=== PATIENT | male | born 1960 | race Caucasian/White ===

== ENCOUNTER 2022-02-18 20:10 | Inpatient (IN) | payer OTHER ==
[~2022-02-18] VITALS: Ht 188 cm; Wt 126.6 kg
[2022-02-18 20:17] VITALS: BP 157/62
--- NOTE | 2022-02-18 20:27 | NUR ---
PT TAKEN TO ER BED 08
[2022-02-18] MEDS ORDERED: VANCOMYCIN 1,000 MG in DEXTROSE 5% 250 ML IV ONE (21:20)
[2022-02-18] MEDS ORDERED: HYDROcodone/APAP 5/325 MG 1 TAB TAB PO ONE (21:35)
[2022-02-18] MEDS ORDERED: NACL 0.9% 2,000 ML IV ONE (21:35)
--- NOTE | 2022-02-18 21:50 | NUR ---
20G IV CATH PLACED LEFT AC. LABS OBTAINED AND SENT WITH BLOOD CULTURES.
[2022-02-18] MEDS ORDERED: HYDROcodone/APAP 5/325 MG 1 TAB TAB ONE (21:56)
[2022-02-18 22:22] LABS: HEMATOCRIT 34.6 % (36-52); HEMOGLOBIN 11.5 g/dL (12.0-18.0); MEAN CORPUSCULAR HEMOGLOBIN 29 pg (27-31); MEAN CORPUSCULAR HGB CONC 33 g/dL (33-37); MEAN CORPUSCULAR VOLUME 87.7 fL (80-94); PLATELET COUNT (AUTO) 345 K/uL (140-450); RED BLOOD CELL COUNT(AUTO) 3.95 MIL/uL (4.20-6.10); WHITE BLOOD COUNT (AUTO) 23.8 K/uL (4.8-10.8)
[2022-02-18] MEDS ORDERED: cefTRIAXone 1,000 MG VIAL ONE (22:36)
[2022-02-18] MEDS ORDERED: VANCOMYCIN 1,000 MG VIAL ONE (22:37)
[2022-02-18 22:40] LABS: ALBUMIN 2.1 g/dL (3.4-5.0); ANION GAP 14.5 (8-16); CREATININE 1.7 mg/dL (0.6-1.3); POTASSIUM 3.5 mmol/L (3.5-5.1); TOTAL BILIRUBIN 0.6 mg/dL (0.0-1.0)
[2022-02-18] MEDS ORDERED: guaiFENesin DM 200/20 MG-10 ML 10 ML UDC PO PRN (23:15)
[2022-02-18] MEDS ORDERED: ONDANSETRON 4 MG/2 ML VIAL IM/IVP PRN (23:15)
[2022-02-18] MEDS ORDERED: DOCUSATE SODIUM 100 MG GELCAP PO PRN (23:15)
[2022-02-18] MEDS ORDERED: ACETAMINOPHEN 325 MG TAB PO PRN (23:15)
[2022-02-18] MEDS ORDERED: ZOLPIDEM 5 MG TAB PO PRN (23:15)
[2022-02-18] MEDS: NACL 0.9% 1,000 ML IV SCH (23:15)
[2022-02-18 23:19] LABS: LYMPHOCYTES % (MANUAL) 3 % (20-46); MONOCYTES % (MANUAL) 2 % (5-12)
[2022-02-18] MEDS ORDERED: VANCOMYCIN PER PHARMACY MC PRN (23:20)
--- NOTE | 2022-02-18 23:53 | NUR ---
IV RESTARTED IN RIGHT FOREARM . 20G PLACED BY KITA GALLEGO
[2022-02-19 00:01] LABS: PROTHROMBIN TIME 10.9 secs (10.8-13.4)
[2022-02-19 00:36] LABS: MAGNESIUM 1.7 mg/dL (1.8-2.4)
[2022-02-19 00:37] LABS: AMYLASE 24 U/L (25-115); CHOL/HDL RATIO 4.6 (1-4.5); HDL CHOLESTEROL 11 mg/dL (40-60); LDL (CALC) 18 mg/dL (60-100); TRIGLYCERIDES 111 mg/dL (30-150)
[2022-02-19 00:38] LABS: FREE T4 (FREE THYROXINE) 1.76 ng/dL (0.76-1.46); LIPASE 128 U/L (73-393)
[2022-02-19 00:40] LABS: APPEARANCE,URINE SL CLOUDY (CLEAR); BILIRUBIN,URINE NEGATIVE (NEGATIVE); BLOOD, URINE 1+ (NEGATIVE); COLOR,URINE YELLOW (YELLOW); LEUKOCYTE ESTERASE ,URINE NEGATIVE (NEGATIVE); NITRITE, URINE NEGATIVE (NEGATIVE); UGLUCOSE NEGATIVE (NEGATIVE)
[2022-02-19 00:47] LABS: RBC,URINE 0-5 /HPF (0-5); WBC,URINE 0-5 /HPF (0-5)
[2022-02-19 01:01] LABS: THYROID STIMULATING HORMONE 0.01 uIU/mL (0.34-3.74)
--- NOTE | 2022-02-19 01:08 | NUR ---
LAB AT BEDSIDE , LABS COLLECTED.
--- NOTE | 2022-02-19 01:20 | NUR ---
Patient will be admitted to care of DR HALE. Admited to TELE. Will go to [id number]. Belongings list completed. Report to TELE/MST RN.
[2022-02-19 06:24] LABS: BASOPHILS % (AUTO) 0.1 % (0.0-2.0); EOSINOPHILS # (AUTO) 0.1 K/uL (0-0.4); EOSINOPHILS % (AUTO) 0.4 % (0.0-4.0); HEMATOCRIT 36.4 % (36-52); LYMPHOCYTES # (AUTO) 0.6 K/uL (2.0-11.5); LYMPHOCYTES % (AUTO) 2.9 % (20.5-51.1); MEAN CORPUSCULAR HEMOGLOBIN 29 pg (27-31); MEAN CORPUSCULAR HGB CONC 33 g/dL (33-37); MEAN CORPUSCULAR VOLUME 87.1 fL (80-94); MONOCYTES # (AUTO) 1.5 K/uL (0.8-1.0); MONOCYTES % (AUTO) 7.2 % (1.7-9.3); NEUTROPHILS # (AUTO) 18.9 K/uL (1.8-7.7); NEUTROPHILS % (AUTO) 89.4 % (42.2-75.2); PLATELET COUNT (AUTO) 334 K/uL (140-450); RED BLOOD CELL COUNT(AUTO) 4.18 MIL/uL (4.20-6.10); RED CELL DISTRIBUTION WIDTH 15.1 % (11.6-13.7)
[2022-02-19] MEDS: NACL 0.9% 1,000 ML IV SCH ×3 (06:40→21:30)
[2022-02-19 06:53] LABS: WHITE BLOOD COUNT (AUTO) 21.2 K/uL (4.8-10.8)
[2022-02-19 08:00] VITALS: BP 102/59
[2022-02-19 09:02] LABS: ANION GAP 13.5 (8-16); CARBON DIOXIDE 25.4 mmol/L (21-32); CREATININE 1.5 mg/dL (0.6-1.3)
[2022-02-19 09:05] LABS: POTASSIUM 2.9 mmol/L (3.5-5.1)
[2022-02-19] MEDS: PANTOPRAZOLE 40 MG TABEC PO SCH (10:00)
--- NOTE | 2022-02-19 11:20 | NUR ---
PATIENT HAS BEEN SCREENED AND CATEGORIZED MODERATE NUTRITION RISK. PATIENT WILL BE SEEN WITHIN 3-5 DAYS OF ADMISSION. / ALEXANDER AHUMADA RD
[2022-02-19 12:00] VITALS: BP 106/53
[2022-02-19] MEDS ORDERED: KCL 20 MEQ/WATER INJ PREMIX 200 ML IV PRN (13:35)
[2022-02-19 16:00] VITALS: BP 109/57
--- NOTE | 2022-02-19 16:21 | NUR ---
DC PLANNING: THE PATIENT PRESENTED TO THE ED WITH C/O RIGHT FOOT INFECTION WITH REDNESS, SWELLING AND PURULENT DRAINAGE. H/O DM, COMPLETE TOE AMPUTATIONS OF LEFT FOOT, 2 AND 3RD TOE AMPUTATIONS OF RIGHT FOOT. HE STATES THAT HE HAS THE FOOT WOUND FOR SIX MONTHS BUT IT HAS BEEN DRY AND HE HAS NOT SOUGHT TREATMENT FOR IT. XRAY OF FOOT DOES NOT SUGGEST OSTEOMYELITIS, ORDERS FOR ID AND PODIATRY CONSULTS. WBC'S 23.8, BANDS 10, K+ 2.8. THE PATIENT WAS STARTED ON ROCEPHIN AND VANCO IV AND IVF'S, K+ RIDER ORDERED. DAPHNE WILL FOLLOW. Addendum: 02/23/22 at 1238 by Carmita Adan CM DC PLANNING: DAPHNE SPOKE WITH THE PATIENT AT BEDSIDE REGARDING DC PLANNING. DAPHNE CONFIRMED HIS ADDRESS AND PHONE NUMBER, THE PATIENT LIVES IN A HOUSE WITH SEVERAL FRIENDS WITH DISABILITIES. HE STATES THAT HE SOMETIMES USES A CANE TO AMBULATE BUT IS ABLE TO AMBULATE INDEPENDENTLY LONG DISTANCES. ALSO STATES THERE IS A WC AND FWW IN THE HOME BUT THEY AREN'T HIS. HE HAS BEEN ON SERVICE IN THE PAST FEW MONTHS WITH HOME HEALTH FOR WOUND CARE BUT CAN'T REMEMBER THE NAME OF THE AGENCY. THE PATIENT IS NOT WILLING TO GO TO SNF FOR WOUND CARE, DAPHNE ENDORSED THAT DCP WILL FOCUS ON A HOME DC WITH HOME HEALTH AND DME. DAPHNE LEFT A MESSAGE WITH DR FELIX OFFICE TO CLARIFY WOUND CARE AND ACTIVITY FOR THE PATIENT HE IS S/P I&D YESTERDAY. DAPHNE ALSO SPOKE WITH BRENDA MICHELLE [facility] TO FIND OUT WHICH HOME HEALTH AGENCY THE PATIENT HAS BEEN WITH FOR WOUND CARE, HE HAS NOT HAD HH WITH THEM, CM WILL FAX ORDERS TO [facility]. CM WILL FOLLOW. Addendum: 02/25/22 at 1149 by Carmita Adan DC PLANNING: THE PATIENT IS GOING [place] TODAY WITH DR DAVIDSON FOR FURTHER SURGERY TO HIS RIGHT FOOT. NOTES STATE THAT PATIENT WILL NEED HOME HEALTH FOR WOUND VAC CHANGES AND IV ABX. PATIENTS WBC'S TODAY ARE 17.4, PATIENT WILL HAVE HOME HEALTH THROUGH HIS INSURANCE [facility]. CM WILL ARRANGE ONCE ORDERS ARE IN FOR WOUND VAC, HOME HEALTH AND IV ABX. CM WILL FOLLOW. Addendum: 02/26/22 at 0856 by Carmita Adan CM DC PLANNING: PATIENT IS S/P I&D OF POSTERIOR LATERAL CALF WITH APPLICATION OF WOUND VAC. CM SPOKE WITH DR DAVIDSON TO CLARIFY DC NEEDS, CONFIRMED THAT HIS DOCUMENTATION REGARDING WOUND CARE TO THE LEFT PLANTAR FOOT AND ANKLE ARE TO BE CONTINUED WHEN PATIENT DC'S HOME. DR DAVIDSON STATES THAT THE PATIENT MAY HAVE ANOTHER PUS POCKET THAT NEEDS TO BE CLEANED OUT AND THAT HE WILL MONITOR THE PATIENTS WBC'S TO GAUGE THIS. DC PLAN IS TO RETURN HOME WITH HOME HEALTH, WOUND VAC, IV ABX. CM WILL SPEAK WITH PATIENTS INSURANCE [facility] AND WILL PROCEED WITH STARTING ARRANGEMENTS FOR NEEDS. CM WILL FOLLOW. Addendum: 02/26/22 at 1416 by Carmita Adan CM DC PLANNING: CLINICAL PACKET AND WOUND VAC FORM FAXED TO [facility], MESSAGE LEFT FOR THE [facility] MELISSA RIOS, WOUND CARE NURSE STATES SHE WILL ALSO EMAIL [facility] CONTACT FOR [facility]. CLINICAL PACKET AND ORDERS ALSO FAXED TO [facility] FOR THE WOUND VAC AND HOME HEALTH FOR WOUND CARE AND IV ABX WHICH ARE YET TO BE DETERMINED FOR HOME. CM WILL FOLLOW. Addendum: 02/26/22 at 1606 by Carmita Adan CM DC PLANNING: CM RECEIVED A CALL FROM CHUCK AT [facility] WHO CONFIRMED THAT SHE RECEIVED THE ORDER AND FORM FOR WOUND VAC AND WILL START WORKING ON ARRANGING IT. CM WILL FOLLOW. Addendum: 03/01/22 at 1332 by Mercedes Gayle RN DC PLANNING: CALLED [facility] [phone] SPOKE WITH BRENDA, NOTIFIED HER THAT PATIENT HAS A DC ORDER FOR HOME HEALTH FOR WOUND CARE AND IV ABX. PER BRENDA HER CO WORKER [employer] IS WORKING ON IT AND WILL CALL ME BACK. CM TO FOLLOW Addendum: 03/01/22 at 1425 by Mercedes Gayle RN DC PLANNING: RECEIVED A CALL FROM NADIA AT [facility] [phone] PROVIDE AUTH # [id number] AND STILL AWAITING FOR [facility] TO ACCEPT PT. CM TO FOLLOW. Addendum: 03/01/22 at 1502 by Mercedes Gayle RN DC PLANNING: CALLED [facility] SPOKE WITH MATHEW STATED THEY CAN'T FIND ANY NURSE FOR IV ABX. CALLED NADIA AT [facility] STATED [facility] IS WORKING ON IT, AND WILL CALL BACK WHEN SHE FINDS ONE. CM TO FOLLOW Addendum: 03/01/22 at 1549 by Mercedes Gayle RN DC PLANNING: RECEIVED A CALL FROM BRENDA STATED SONG IS OFF AND [employer] OR [facility] ARE HELPING HER TO PROCESS THE REQUEST. I EXPLAINED TO HER THAT I HAVE A CONFIRMATION FAXED ORDER AT 13:25 AND WAS NOTIFIED [employer] THAT [facility] ARE NOT ACCEPTING BECAUSE OF SHORT STAFF. PER BRENDA WILL ASK [facility] TO PROCESS IT BUT IT MIGHT NOT HAPPEN TODAY. CM TO FOLLOW Addendum: 03/01/22 at 1551 by Mercedes Gayle RN DC PLANNING: KAYLIE DUFF [phone] LEFT A MESSAGE Addendum: 03/02/22 at 1504 by Mercedes Gayle RN DC PLANNING: KAYLIE WILLIS SPOKE WITH BRENDA STATED [facility] WILL ADMINISTERED IV ABX AND [facility] FOR WOUND CARE. CALLED [facility] [phone] AFTER SEVERAL ATTEMPT INTAKE STATED ASHLEY IS ASSIGNED THE CASE AND TRANSFERRED ME TO EXT [phone] ,SHE IS OUT FOR LUNCH . LEFT A MESSAGE. CM TO FOLLOW Addendum: 03/02/22 at 1701 by Mercedes Gayle RN DC PLANNING: I SPOKE WITH PATIENT EXPLAINED THE SHORTAGE OF NURSE AT HOME HEALTH AND IF HE HAS SOMEONE TO BE TEACHABLE TO ADMINISTER THE IV MEDICATION, PATIENT STATED HE HAS RN BROTHER IN LOW NAME THIAGO CAN HELP HIM AND ALSO HE HAS PLENTY OF HELP TO DRIVE HIM TO THE INFUSION CENTER. RECEIVED A CALL FROM [facility] SPOKE WITH ASHLEY, STATED SHE SPOKE WITH PATIENT AND PATIENT IS AGREEING TO PAY THE CO PAY OF 200$ , PLUS TO COME TO THE INFUSION CENTER. PT WILL BE GOING TO THE CENTER 2XWEEK AND AFTER THAT ONCE A WEEK. [facility] WILL BE GOING TO THE [facility] FOR WOUND CARE AND PHYSICAL THERAPY. AWAITNG FOR [facility] TO ACCEPT . CM TO FOLLOW Addendum: 03/02/22 at 1751 by Mercedes Gayle RN DC PLANNING RECEIVED A CALL FROM [facility] SPOKE WITH MATHEW STATED THEY HAVE NO NURSE FOR WOUND VAC , THEY DECLINE THE CASE. CALLED ALBA LEFT A MESSAGE FOR BRENDA AND AFTER HOUR. UNABLE TO DC PATIENT AT THIS TIME CM TO FOLLOW Addendum: 03/03/22 at 0905 by Carmita Adan CM DC PLANNING: CM SPOKE WITH BRENDA AT [facility] ([phone]), ENDORSED THAT [facility] HAS DECLINED THE PATIENT AND ASKED FOR OTHER OPTIONS, BRENDA STATED THAT THERE ARE NO OTHER OPTIONS AND THAT "THIS ONE IS ONE US", [facility] WILL REACH OUT TO HOME HEALTH AGENCIES TO GET AN MCKAYLA. BRENDA STATES THAT AN MCKAYLA WILL TAKE AT LEAST 48 HOURS AND AGAIN STATED "THIS ONE IS ONE US". CM WILL FOLLOW. Addendum: 03/03/22 at 1506 by Mercedes Gayle RN DC PLANNING: CALLED [facility] [phone] LEFT A MESSAGE FOR BRENDA REGARDING THE HOME HEALTH. CM TO FOLLOW Addendum: 03/03/22 at 1658 by Mercedes Gayle RN DC PLANNING: TRIED TO REACH BRENDA AT [facility] LEFT SEVERAL MESSAGE NO CALL FROM BRENDA ,CALLED [facility] AT [phone] STATED [facility] IS ACCEPTING AND TRYING TO REACH US. SHE PROVIDED THE [facility] HEALTH NUMBER. DAPHNE CALLED [phone] SPOKE WITH [facility]WIN UPDATED PT'S CLINICAL AND FAXED THE WOUND VAC SETTING AND ORDER TO [phone]. I ALSO MENTION WOUND VAC NEEDS TO BE CHANGED 2 X A WEEK AND DUE TOMORROW(TUESDAY), PER LESLIE WILL SEND RN TOMORROW TO START THE CARE. CALLED [facility] SPOKE WITH PACO AND NOTIFIED HER THAT PATIENT WILL BE DC HOME TODAY. BRANDON ANTONIO WILL DELIVER THE IV ABX BETWEEN 7PM TO 11PM DAVID, PACO WILL CALL PATIENT AND ARRANGE FOR THE INFUSION TIME. CM SPOKE WITH PATIENT NOTIFIED THE PLAN , PT STATED WILL CALL FAMILY TO PICK HIM UP. INSTRUCTED PRIMARY RN MAGALY TO PROVIDE EXTRA WOUND CARE SUPPLY AND ALL THE WOUND VAC SUPPLY TO BE WITH PATIENT. PATIENT WILL BE DISCHARGED TODAY TO HOME WITH [facility].
[2022-02-19] MEDS: VANCOMYCIN 1,500 MG in NACL 0.9% 500 ML IV SCH (17:50)
--- NOTE | 2022-02-19 19:30 | NUR ---
RECEIVED BEDSIDE REPORT FROM DAY RN. PT IS AAOX4. RESPIRATION ARE EQUAL AND UNLABORED ON ROOM AIR. RT LEG CELLULITIS AND OPEN WOUND DRESSING IS C/D/I. PT WENT NUCLEAR MED FOR BONE SCAN WILL BE GOING BACK AT AROUND 1999 PER REPORT. L FOOT PARTIAL AMPUTATION. FALL RISK IN PLACE. IV ON R FA 24G VANCO INFUSING. PT IS CONTINENT OF B/B. POC REVIEWED WITH PT. CALL LIGHT IS WITHIN REACH.
[2022-02-19 20:00] VITALS: BP 132/65
--- NOTE | 2022-02-19 20:19 | NUR ---
ROCEPHIN NOW INFUSING PER ORDERS. R FOOT PITTING EDEMA +3. DRESSING IS C/D/I. ALL NEEDS MET. WILL CONTINUE TO MONITOR.
[2022-02-19] MEDS: HYDROcodone/APAP 7.5/325 MG 1 TAB PO PRN (21:44)
[2022-02-19 22:04] LABS: BARBITURATE, URINE NEGATIVE ng/ml (NEG <=200); BENZODIAZEPINE, URINE NEGATIVE ng/mL (NEG <=200); CANNABINOID, URINE NEGATIVE ng/mL (NEG <=50); COCAINE, URINE NEGATIVE ng/mL (NEG <=300); OPIATE, URINE POSITIVE ng/mL (NEG <=2000); PHENCYCLIDINE SCREEN,URINE NEGATIVE ng/mL (NEG <=25)
--- NOTE | 2022-02-19 22:10 | NUR ---
ROUNDS MADE. PT OBSERVED LAYING IN BED WITH EYES CLOSED APPEARS TO BE ASLEEP. CHEST RISE AND FALL NOTED. WILL CONTINUE TO MONITOR.
[2022-02-20] VITALS: BP 121/65
--- NOTE | 2022-02-20 00:15 | NUR ---
PATIENT OBSERVED RESTING IN BED APPEARS TO BE ASLEEP. VSS. ALL SAFETY MEASURES ARE IN PLACE. CALL LIGHT IS WITHIN REACH. WILL CONTINUE TO MONITOR.
--- NOTE | 2022-02-20 02:00 | NUR ---
PATIENT OBSERVED LAYING IN BED WITH EYES CLOSED APPEARS TO BE ASLEEP. CHEST RISE AND FALL NOTED. CALL LIGHT IS WITHIN REACH. WILL CONTINUE TO MONITOR.
[2022-02-20 04:00] VITALS: BP 131/73
--- NOTE | 2022-02-20 04:00 | NUR ---
VITAL SIGNS ARE WITHIN NORMAL LIMITS. ALL SAFETY MEASURES ARE IN PLACE. WILL CONTINUE TO MONITOR.
[2022-02-20] MEDS: NACL 0.9% 1,000 ML IV SCH ×3 (04:52→21:21)
[2022-02-20 06:26] LABS: BASOPHILS # (AUTO) 0.1 K/uL (0.00-0.22); BASOPHILS % (AUTO) 0.3 % (0.0-2.0); EOSINOPHILS % (AUTO) 0.1 % (0.0-4.0); HEMATOCRIT 35.7 % (36-52); HEMOGLOBIN 11.5 g/dL (12.0-18.0); LYMPHOCYTES # (AUTO) 0.7 K/uL (2.0-11.5); MEAN CORPUSCULAR HEMOGLOBIN 28 pg (27-31); MEAN CORPUSCULAR HGB CONC 32 g/dL (33-37); MEAN CORPUSCULAR VOLUME 88.1 fL (80-94); MONOCYTES # (AUTO) 1.8 K/uL (0.8-1.0); MONOCYTES % (AUTO) 7.6 % (1.7-9.3); NEUTROPHILS # (AUTO) 20.9 K/uL (1.8-7.7); PLATELET COUNT (AUTO) 427 K/uL (140-450); RED BLOOD CELL COUNT(AUTO) 4.05 MIL/uL (4.20-6.10); RED CELL DISTRIBUTION WIDTH 15.2 % (11.6-13.7); WHITE BLOOD COUNT (AUTO) 23.5 K/uL (4.8-10.8)
[2022-02-20 06:34] LABS: ANION GAP 12.1 (8-16); CARBON DIOXIDE 28.3 mmol/L (21-32); CREATININE 1.3 mg/dL (0.6-1.3); POTASSIUM 3.4 mmol/L (3.5-5.1)
--- NOTE | 2022-02-20 06:52 | NUR ---
PATIENT WAS INITIALLY SCREENED MODERATE I/A AND THEN PATIENT WAS NOTED TO HAVE A WOUND/PRESSURE ULCER PER CONSULT RECEIVED AFTER INITIAL SCREEN WAS DONE. RESCREEN ADDENDUM: PATIENT HAS BEEN RESCREENED AND RE-CATEGORIZED HIGH RISK D/T PATIENT WITH WOUND/PRESSURE ULCER. PATIENT WILL BE SEEN WITHIN 1-2 DAYS OF CHANGE IN MEDICAL STATUS. 02/20/22-02/21/22 ERIC ULLOA MS, RDN
--- NOTE | 2022-02-20 07:29 | NUR ---
GAVE BEDSIDE REPORT TO DAY RN. PT ENDORSED IN STABLE CONDITION.
[2022-02-20 08:00] VITALS: BP 123/60
--- NOTE | 2022-02-20 08:00 | NUR ---
RECEIVED REPORT FROM [employer] [employer]. PT A/O X4. NO SOB OR RESPIRATORY DISTRESS. ON RA. NO SOB OR RESPIRATORY DISTRESS. ON RA. DENIES PAIN. URINAL AT BEDSIDE. IVF INFUSING. nS @ 135 ML/HR. BONE SCAN COMPLETED. PT RADIOACTIVE TILL 02/19/22 @ 1600. SAFETY MEASURES IN PLACE. WILL CONTINUE TO MONITOR.
[2022-02-20 08:08] LABS: T4 (THYROXINE) 9.6 ug/dL (4.5-12.0)
--- NOTE | 2022-02-20 09:00 | NUR ---
PT AFEBRILE. DENIES FEVER. STATES RLE PAIN. SEE EMAR FOR PRN PAIN MED ADMINISTRATION.
[2022-02-20] MEDS: PANTOPRAZOLE 40 MG TABEC PO SCH (09:11)
[2022-02-20] MEDS: HYDROcodone/APAP 7.5/325 MG 1 TAB PO PRN (09:17)
--- NOTE | 2022-02-20 09:57 | NUR ---
(02/20/22) RD INITIAL ASSESSMENT COMPLETED PLEASE REFER TO NUTRITION ASSESSMENT UNDER CARE ACTIVITY FOR ESTIMATED NUTRITIONAL NEEDS. RD RECOMMENDATIONS: 1. CONTINUE CCHO 60 GM DIET TOLERATED. 2. IF PTS INTAKES > 50%, CONSIDER INCREASING DIET TO CCHO 75 GM. 3. PER RX PROTOCOL, RDN ADDED GLUCERNA 1 CARTON WITH EACH MEAL TID TO HELP MEET EST NEEDS AND SUPPORT WOUND HEALING NEEDS. THIS PROVIDES A TOTAL OF 660 KCAL AND 30 GM PROTEIN. 4. RECOMMEND ADDING THERAGRAN-M AND VITAMIN C FOR WOUND HEALING SUPPORT 5. RDN TO F/U WITH DM DIET EDUCATION 6. RD WILL F/U 2-3 DAYS; HIGH RISK. ERIC ULLOA, MS, RDN
--- NOTE | 2022-02-20 11:38 | NUR ---
CONTACTED MD REGARDING ACCUCHECK/INSULIN ORDERS. AWAITING REPLY.
[2022-02-20] MEDS ORDERED: DEXTROSE 50% 50 ML SYR IVP PRN (11:55)
[2022-02-20 12:00] VITALS: BP 127/65
--- NOTE | 2022-02-20 12:00 | NUR ---
NEW ACCUCHECK ORDERS INPUTTED PER MD ORDER.
[2022-02-20] MEDS: PIPERACILLIN/TAZOBACTAM 3.375 GM in DEXTROSE 5% 50 ML IV SCH ×2 (12:16→21:20)
[2022-02-20] MEDS: POTASSIUM CHLORIDE 10 MEQ TABER PO PRN (12:18)
--- NOTE | 2022-02-20 12:18 | NUR ---
KDUR 40 MEQ PO PRN GIVEN.
[2022-02-20] MEDS: VANCOMYCIN 1,500 MG in NACL 0.9% 500 ML IV SCH (13:12)
[2022-02-20 16:00] VITALS: BP 132/57
[2022-02-20] MEDS: INSULIN LISPRO SLIDING SCALE 100 UNITS/ML VIAL SUBQ PRN (16:16)
[2022-02-20] MEDS: BLOOD GLUCOSE MONITORING 1 DEV DEV FS SCH ×2 (16:19→21:22)
--- NOTE | 2022-02-20 17:00 | NUR ---
NO ADVERSE EFFECTS FROM ANTIBIOTICS. AFEBRILE. PAIN AT THIS TIME. SAFETY MEASURES IN PLACE. PT NO LONGER RADIOACTIVE FROM BONE SCAN. NEEDS ALL MET. WILL MONITOR.
--- NOTE | 2022-02-20 19:27 | NUR ---
RECEIVED PT FROM AM NURSE FOR CONTINUITY OF CARE.PT IS STABLE
--- NOTE | 2022-02-20 19:30 | NUR ---
REPORT GIVEN TO NIGHTSHIFT NURSE FOR CONTINUITY OF CARE.
--- NOTE | 2022-02-20 23:35 | NUR ---
PATIENT ASLEEP, BREATHING EVEN AND UNLABORED,NO DISTRESS NOTED
[2022-02-21] VITALS: BP 134/63
--- NOTE | 2022-02-21 01:00 | NUR ---
IV ACCESS PULLED OPUT,CHABGED FROM RFA TO RAC, INTACT AND PATENT.
--- NOTE | 2022-02-21 02:15 | NUR ---
TEMP 100.4,TYLENOL 650 MG TAB GIVEN,NO DISTRESS NOTED.
[2022-02-21] MEDS: NACL 0.9% 1,000 ML IV SCH ×3 (03:10→18:42)
[2022-02-21 04:00] VITALS: BP 126/70
--- NOTE | 2022-02-21 04:00 | NUR ---
PT ASLEEP ,BREATHING EVEN AND UNLABORED,NO DISTRESS NOTED
[2022-02-21] MEDS: PIPERACILLIN/TAZOBACTAM 3.375 GM in DEXTROSE 5% 50 ML IV SCH ×3 (05:05→20:57)
--- NOTE | 2022-02-21 06:08 | NUR ---
SLEEPING COMFORTABLY,NO ADVERSE REACTION NOTED FROM ANTIBIOTICS.
[2022-02-21 06:18] LABS: HEMATOCRIT 34.4 % (36-52); HEMOGLOBIN 11.2 g/dL (12.0-18.0); MEAN CORPUSCULAR HEMOGLOBIN 28 pg (27-31); MEAN CORPUSCULAR HGB CONC 33 g/dL (33-37); MEAN CORPUSCULAR VOLUME 86.3 fL (80-94); PLATELET COUNT (AUTO) 423 K/uL (140-450); RED BLOOD CELL COUNT(AUTO) 3.99 MIL/uL (4.20-6.10); RED CELL DISTRIBUTION WIDTH 14.9 % (11.6-13.7); WHITE BLOOD COUNT (AUTO) 23.8 K/uL (4.8-10.8)
[2022-02-21 06:46] LABS: ANION GAP 10.4 (8-16); CARBON DIOXIDE 25.7 mmol/L (21-32); CREATININE 1.1 mg/dL (0.6-1.3); POTASSIUM 3.1 mmol/L (3.5-5.1)
[2022-02-21 06:48] LABS: LYMPHOCYTES % (MANUAL) 7 % (20-46); MONOCYTES % (MANUAL) 9 % (5-12)
[2022-02-21] MEDS: VANCOMYCIN 1,500 MG in NACL 0.9% 500 ML IV SCH (07:06)
[2022-02-21] MEDS: BLOOD GLUCOSE MONITORING 1 DEV DEV FS SCH ×4 (07:06→21:10)
--- NOTE | 2022-02-21 07:25 | NUR ---
RECEIVED REPORT FROM CAB STARTER NURSE FOR CONTINUITY OF CARE. PT ASLEEP IN BED, BREATHING SYMMETRICAL ON ROOM AIR. RAC 22G WITH NS AT 135CC/HR. FLACC O. BED ON LOW POSITION. CALL LIGHT WITHIN REACH. ALL SAFETY MEASURES IN PLACE.
--- NOTE | 2022-02-21 07:35 | NUR ---
ENDORSED PT TO AM NURSE FOR CON TINUITY OF CARE.PT IS STABLE
[2022-02-21 08:00] VITALS: BP 135/62
[2022-02-21] MEDS: PANTOPRAZOLE 40 MG TABEC PO SCH (08:21)
[2022-02-21] MEDS: POTASSIUM CHLORIDE 10 MEQ TABER PO PRN (08:21)
--- NOTE | 2022-02-21 08:25 | NUR ---
SCHEDULED AM MEDICATION GIVEN ORDERED, K REPLENISHED WITH PRN K DUR. PT WITH 1 SIDE RAIL UP, REFUSES TO PUT 2 SIDERAILS UP DESPITE EXPLAINING SAFETY IMPORTANCE.
--- NOTE | 2022-02-21 09:10 | NUR ---
SEEN BY DR ENAMORADO STATED TO CONTINUE BEBA
[2022-02-21] MEDS ORDERED: MAG SULF 2000 MG/WATER PREMIX 50 ML IV SCH (10:00)
--- NOTE | 2022-02-21 10:00 | NUR ---
PT WITH M&M CHOCOLATES UNOPENED BAG, PT HAS DM. EXPLAINED TO PT IMPORTANCE OF COMPLYING WITH DIET AND EFFECTS OF NON COMPLIANCE WITH WOUND HEALING. PT VERBALIZED UNDERSTANDING
--- NOTE | 2022-02-21 11:45 | NUR ---
CHANGED DRESSING ON RIGHT FOOT, NOTED WOUND WITH FOUL ODOR, C/O MILD PAIN BUT TOLERABLE.
[2022-02-21] MEDS: INSULIN LISPRO SLIDING SCALE 100 UNITS/ML VIAL SUBQ PRN ×3 (11:49→21:13)
[2022-02-21] MEDS ORDERED: METF-1253 PO (12:03)
[2022-02-21] MEDS ORDERED: FLUO40CA6 PO (12:03)
[2022-02-21] MEDS ORDERED: ATOR20TA PO (12:03)
[2022-02-21] MEDS ORDERED: GLIP10TA3 PO (12:03)
[2022-02-21] MEDS ORDERED: HYDR-4004 PO (12:03)
[2022-02-21] MEDS ORDERED: BENA20TA PO (12:03)
--- NOTE | 2022-02-21 13:06 | NUR ---
PT STATED HE'S TAKING MEDS AT HOME (BENAZEPRIL, HYDROCHLOROTHIAZIDE, METFORMIN, GLIPIZIDE, ATORVASTATIN AND PROZAC) DR SHANE MADE AWARE, TO CONTINUE BP MEDS. PT ALREADY ON INSULIN AND FINGERSTICKS.
--- NOTE | 2022-02-21 13:35 | NUR ---
PT SEEN BY DR DAVIDSON (PRN PHYSICAL THERAPIST) REGARDING RIGHT FOOT WOUND, PT FOR SURGERY TOMORROW MORNING PER .
[2022-02-21 16:00] VITALS: BP 138/76
--- NOTE | 2022-02-21 17:01 | NUR ---
PT AWAKE IN BED, ABLE TO MAKE NEEDS KNOWN. BREATHING SYMMETRICAL ON ROOM AIR. PT STATES PO DIABETIC MEDS AT HOME, WORKS WELL IN CONTROLLING HIS BLOOD SUGAR. DR SHANE MADE AWARE TO RESUME GLIPIZIDE AND CONTINUE ACCUCHECK AND INSULIN PER SLIDING SCALE. DENIES PAIN AT THIS TIME.
--- NOTE | 2022-02-21 19:31 | NUR ---
ENDORSED PT TO MIS SPECIALIST NURSE. PT IN STABLE CONDITION
--- NOTE | 2022-02-21 19:32 | NUR ---
RECEIVED REPORT FROM AM NURSE. REVIEWED PLAN OF CARE FOR CONTINUITY OF CARE. PT STABLE ABLE TO MAKE NEEDS KNOWN. R FOOT WOUND DRESSING D&I. RAC 22G IV INFUSING NS @135CC/HR. DENIES PAIN. ALL SAFETY MEASURES IN PLACE. WILL CONTINUE TO MONITOR.
[2022-02-21 20:00] VITALS: BP 150/69
--- NOTE | 2022-02-21 21:30 | NUR ---
HS MEDS GIVEN. EDUCATED PT RE: LORIO P MIDNIGHT STATUS FOR SURGERY 02/22/2022 @ 0730 AM. TV=[id number] COVERED WITH 4 UNITS HUMALOG INSULIN PER SLIDING SCALE. WILL CONTINUE TO OBSERVE.
[2022-02-22] MEDS: VANCOMYCIN 1,500 MG in NACL 0.9% 500 ML IV SCH (00:09)
--- NOTE | 2022-02-22 01:00 | NUR ---
PT SLEPT IN 2HR INTERVALS. VOIDING PER URINAL CLEAR LIGHT BRAVO URINE. CALL LIGHT WITHIN REACH. NO C/O PAIN OR DISTRESS. WILL CONTINUE WITH FREQ ROUNDS.
[2022-02-22] MEDS: NACL 0.9% 1,000 ML IV SCH ×6 (01:30→23:40)
[2022-02-22] MEDS: PIPERACILLIN/TAZOBACTAM 3.375 GM in DEXTROSE 5% 50 ML IV SCH ×3 (04:58→21:00)
[2022-02-22 05:16] LABS: BASOPHILS % (AUTO) 0.1 % (0.0-2.0); EOSINOPHILS % (AUTO) 0.1 % (0.0-4.0); HEMATOCRIT 32.2 % (36-52); HEMOGLOBIN 10.7 g/dL (12.0-18.0); LYMPHOCYTES % (AUTO) 4.2 % (20.5-51.1); MEAN CORPUSCULAR HEMOGLOBIN 29 pg (27-31); MEAN CORPUSCULAR HGB CONC 33 g/dL (33-37); MEAN CORPUSCULAR VOLUME 87.3 fL (80-94); MONOCYTES # (AUTO) 1.7 K/uL (0.8-1.0); MONOCYTES % (AUTO) 7.5 % (1.7-9.3); NEUTROPHILS # (AUTO) 19.8 K/uL (1.8-7.7); NEUTROPHILS % (AUTO) 88.1 % (42.2-75.2); PLATELET COUNT (AUTO) 419 K/uL (140-450); RED BLOOD CELL COUNT(AUTO) 3.68 MIL/uL (4.20-6.10); WHITE BLOOD COUNT (AUTO) 22.6 K/uL (4.8-10.8)
[2022-02-22 05:53] LABS: ANION GAP 10.5 (8-16); CARBON DIOXIDE 26.8 mmol/L (21-32); CREATININE 1.2 mg/dL (0.6-1.3); POTASSIUM 3.3 mmol/L (3.5-5.1)
--- NOTE | 2022-02-22 06:30 | NUR ---
PT HAS BEEN NPO X MEDS SINCE MIDNIGHT. SCHEDULED FOR SURGERY ON R FOOT I&D @ 07;30 AM. SURGERY CHECKLIST DONE ON COMPUTER. MK=437 COVERED WITH 2 UNITS HUMALOG INSULIN PER SLIDING SCALE. GLUCOTROL HELD. PT IS NPO. SIDE RAILS UP X2. CALL LIGHT WITHIN REACH. NAD. WILL CONTINUE TO MONITOR.
[2022-02-22] MEDS: BLOOD GLUCOSE MONITORING 1 DEV DEV FS SCH ×4 (06:37→21:00)
[2022-02-22] MEDS: glipiZIDE 10 MG TAB PO SCH ×2 (06:38→17:21)
[2022-02-22] MEDS: INSULIN LISPRO SLIDING SCALE 100 UNITS/ML VIAL SUBQ PRN ×4 (06:39→22:55)
[2022-02-22] MEDS ORDERED: fentaNYL citrate 0.05 MG/ML VIAL ONE (07:25)
[2022-02-22] MEDS ORDERED: PROPOFOL 200 MG/20 ML VIAL IV ONE (07:26)
--- NOTE | 2022-02-22 07:34 | NUR ---
PT LEFT FOR SURGERY IN BED.
--- NOTE | 2022-02-22 07:36 | NUR ---
PATIENT WHEELED BY OR NURSE ON [facility] FOR SURGERY AT 0730 PATIENT AWAKE AND RECEIVED ENDORSEMENT FROM [place] LINE ATTENDANT NURSE FOR CONTINUITY OF CARE.
[2022-02-22] MEDS ORDERED: BUPIVACAINE-MPF 0.5% 10 ML VIAL INJ ONE (07:42)
[2022-02-22] MEDS ORDERED: SEVOFLURANE 250 ML BTL INH ONE (07:50)
[2022-02-22 08:00] VITALS: BP 150/69
--- NOTE | 2022-02-22 08:00 | NUR ---
ENDORSED REPORT TO AM NURSE. REVIEWED PLAN OF CARE AND DISCUSSED NIGHT'S EVENTS FOR CONTINUITY OF CARE.
[2022-02-22] MEDS ORDERED: ePHEDrine 50 MG/ML VIAL ONE (08:28)
--- NOTE | 2022-02-22 08:50 | NUR ---
PATIENT SEEN BY DR. HALE AND SPOKE TO PATIENT PATIENT PROMISE THAT HE WILL CONTINUE TO TAKE HIS MEDICATION EVEN WHEN HE IS DISCHARGE TO [facility]. PATIENT CALM AND COOPERATIVE. Addendum: 02/22/22 at 1037 by Kirsetn Cid [id number] PATIENT.
[2022-02-22] MEDS: BENAZEPRIL 20 MG TAB PO SCH (09:00)
[2022-02-22] MEDS: PANTOPRAZOLE 40 MG TABEC PO SCH (09:00)
[2022-02-22] MEDS: hydroCHLOROthiazide 25 MG TAB PO SCH (09:00)
[2022-02-22] MEDS ORDERED: MEPERIDINE 25 MG/ML SYR IVP PRN (09:45)
[2022-02-22] MEDS ORDERED: ONDANSETRON 4 MG/2 ML VIAL IVP PRN (09:45)
[2022-02-22] MEDS ORDERED: diphenhydrAMINE 50 MG/ML VIAL IVP PRN (09:45)
[2022-02-22] MEDS ORDERED: HYDROmorphone 1 MG/ML AMP IVP PRN (09:45)
[2022-02-22] MEDS ORDERED: BLOOD GLUCOSE MONITORING 1 DEV DEV FS SCH (09:45)
--- NOTE | 2022-02-22 10:10 | NUR ---
WOUND CARE CONSULT NOT DONE . PT IS WITH DR. DAVIDSON FOR PROCEDURES RIGHT SIDE I & D OF FOOT & ANKLE WITH FASCIOTOMY AND CONTROL OF INFECTED TISSUE, AMPUTATION OF METATARSAL, BONE BIOPSY, AND PARTIAL CLOSURE. PLEASE FOLLOW UP WITH DR. DAVIDSON, POST SURGERY ORDER AND WOUND CARE.
--- NOTE | 2022-02-22 10:15 | NUR ---
PT IDS BACK FROM SURGERY. OR NURSE WHEELED THE PT RUBI. PT BREATHING EVEN AND UNLABORED. NO SIGNS OF DISTRESS NOTED. V/S TAKEN. PT IS ON STABLE CONDITION. LEFT MESSAGE TO DR HALE REGARDING MG LEVEL 1.6. NEEDS PRN ORDER FOR MG COVERAGE. AWAITING FOR RESPONSE. CALL LIGHT WITHIN REACH. SAFETY PRECAUTIONS IN PLACE. WILL CONTINUE TO MONITOR.
[2022-02-22] MEDS: POTASSIUM CHLORIDE 10 MEQ TABER PO PRN (12:17)
[2022-02-22] MEDS: MAGNESIUM OXIDE 400 MG TAB PO SCH (12:17)
[2022-02-22] MEDS: HYDROcodone/APAP 7.5/325 MG 1 TAB PO PRN ×2 (12:33→23:04)
--- NOTE | 2022-02-22 12:33 | NUR ---
ADMINISTERED MAG OX AND K-DUR. BLOOD SUGAR CHECK DONE. ADMINISTERED INSULIN COVERAGE FOR BS 197. PT ALSO COMPLAINED OF PAIN 6/10. MEDICATED PER PRN ORDER. WILL CONTINUE TO MONITOR.
--- NOTE | 2022-02-22 13:30 | NUR ---
PATIENT ATE LUNCH CALL LIGHT WITH IN EASY REACH.
--- NOTE | 2022-02-22 15:00 | NUR ---
PATIENT ON BED RESTING WITH CALL LIGHT WITH IN EASY REACH. REQUESTED FOR DIET SODA GIVEN REQUEST. NO COMPLAIN OF PAIN AT THIS TIME.
[2022-02-22 16:00] VITALS: BP 127/83
--- NOTE | 2022-02-22 17:00 | NUR ---
BLOOD SUGAR CHECKED GIVEN INSULIN COVERAGE AND GLIPIZIDE GIVEN. CALL LIGHT WITH IN EASY REACH.
--- NOTE | 2022-02-22 19:25 | NUR ---
GAVE REPORT TO PLATE PAINTER APPRENTICE NURSE FOR CONTINUITY OF CARE.
--- NOTE | 2022-02-22 19:26 | NUR ---
RECEIVED BEDSIDE REPORT FROM DAY SHIFT NURSE FOR THE CONTINUITY OF CARE FOR PT.
--- NOTE | 2022-02-22 20:30 | NUR ---
PT ON BED, AWAKE AND ALERT. IV HYDRATION IS RUNNING WELL. IV HYDRATION IS ON GOING, INTACT AND PATENT. SAFETY MEASURES IN PLACE, CALL LIGHT WITHIN REACH.
[2022-02-23] VITALS: BP 115/64
[2022-02-23] MEDS: NACL 0.9% 1,000 ML IV SCH ×4 (02:25→21:55)
[2022-02-23] MEDS: HYDROcodone/APAP 7.5/325 MG 1 TAB PO PRN ×3 (05:31→21:43)
[2022-02-23] MEDS: PIPERACILLIN/TAZOBACTAM 3.375 GM in DEXTROSE 5% 50 ML IV SCH ×3 (05:40→21:43)
[2022-02-23 05:44] LABS: BASOPHILS % (AUTO) 0.1 % (0.0-2.0); EOSINOPHILS % (AUTO) 0.1 % (0.0-4.0); HEMATOCRIT 30.3 % (36-52); HEMOGLOBIN 9.9 g/dL (12.0-18.0); LYMPHOCYTES # (AUTO) 1.4 K/uL (2.0-11.5); LYMPHOCYTES % (AUTO) 5.4 % (20.5-51.1); MEAN CORPUSCULAR HEMOGLOBIN 29 pg (27-31); MEAN CORPUSCULAR HGB CONC 33 g/dL (33-37); MEAN CORPUSCULAR VOLUME 87.2 fL (80-94); MONOCYTES # (AUTO) 1.7 K/uL (0.8-1.0); MONOCYTES % (AUTO) 6.7 % (1.7-9.3); NEUTROPHILS # (AUTO) 22.7 K/uL (1.8-7.7); NEUTROPHILS % (AUTO) 87.7 % (42.2-75.2); PLATELET COUNT (AUTO) 432 K/uL (140-450); RED BLOOD CELL COUNT(AUTO) 3.48 MIL/uL (4.20-6.10); RED CELL DISTRIBUTION WIDTH 15.5 % (11.6-13.7)
[2022-02-23 05:48] LABS: WHITE BLOOD COUNT (AUTO) 25.8 K/uL (4.8-10.8)
[2022-02-23] MEDS: INSULIN LISPRO SLIDING SCALE 100 UNITS/ML VIAL SUBQ PRN ×5 (06:39→21:23)
--- NOTE | 2022-02-23 07:20 | NUR ---
RECEIVED REPORT FROM PRINTED CIRCUIT BOARD PANELS DEVELOPER NURSE FOR CONTINUITY OF CARE. PATIENT ALERT AND NO DISTRESS NOTED. IV SITE ON LEFT AC FINN 22 IV RUNNING AT 135ML/MIN. NO FLUID OVERLOAD NOTED. NO ADVERSE REACTION NOTED. ALL SAFETY MEASURE IN PLACE. CALL LIGHT WITH IN EASY REACH.
[2022-02-23] MEDS: BLOOD GLUCOSE MONITORING 1 DEV DEV FS SCH ×5 (07:30→20:59)
[2022-02-23 08:00] VITALS: BP 107/57
[2022-02-23 08:13] LABS: ANION GAP 15.9 (8-16); CARBON DIOXIDE 23.6 mmol/L (21-32); CREATININE 1.2 mg/dL (0.6-1.3); POTASSIUM 3.5 mmol/L (3.5-5.1)
[2022-02-23] MEDS: glipiZIDE 10 MG TAB PO SCH ×2 (09:37→17:27)
[2022-02-23] MEDS: PANTOPRAZOLE 40 MG TABEC PO SCH (09:37)
[2022-02-23] MEDS: hydroCHLOROthiazide 25 MG TAB PO SCH (09:38)
[2022-02-23] MEDS: BENAZEPRIL 20 MG TAB PO SCH (09:38)
[2022-02-23] MEDS: MAGNESIUM OXIDE 400 MG TAB PO SCH (09:38)
--- NOTE | 2022-02-23 09:47 | NUR ---
GIVEN ALL DUE MEDICATION. PATIENT ASLEEP BUT ABLE TO WAKE UP. CALL LIGHT WITH IN EASY REACH.
--- NOTE | 2022-02-23 10:14 | NUR ---
PT IN BED, AWAKE AND WATCHING FROM HIS CP. BREATHING EVEN AND UNLABORED AT ROOM AIR. NO DISTRESS NOTED. DENIES PAIN. WILL CONTINUE TO MONITOR.
--- NOTE | 2022-02-23 12:11 | NUR ---
BLOOD GLUCOSE CHECK DONE. INSULIN COVERAGE FOR BS-277 GIVEN.
--- NOTE | 2022-02-23 13:02 | NUR ---
NURSE WITH CRUMB PACKER AT BED SIDE, ASSESSING HOW PT IS TOLERATING HIS DIET AND GIVING PT TEACHINGS. PT VERBALIZED UNDERSTANDING.
--- NOTE | 2022-02-23 13:07 | NUR ---
LASHONDA HANG ZOSYN ORDER NO ADVERSE REACTION NOTED.
--- NOTE | 2022-02-23 13:51 | NUR ---
PT COMPLAINT ON HER FOOT OF PAIN 04/16. MEDICATED PER PRN ORDER.
--- NOTE | 2022-02-23 14:53 | NUR ---
02/23/22 RD FOLLOW UP COMPLETED PLEASE REFER TO NUTRITION ASSESSMENT UNDER CARE ACTIVITY FOR ESTIMATED NUTRITIONAL NEEDS. 1. DISCONTINUE GLUCERNA TID PER RD PROTOCOL 2. RECOMMEND MECHANICAL SOFT CCHO 60 GM + RENAL DIET AND BONIFACIO TID (FOR WOUND HEALING) TOLERATED 3. RD PROVIDED NUTRITIONAL DIABETES EDUCATION TO PT WITH HANDOUTS 4. RD TO FOLLOW-UP 7 DAYS, LOW RISK REVIEWED BY ALEXANDER AHUMADA RD
--- NOTE | 2022-02-23 15:37 | NUR ---
SPOKE TO FNS FOR THE RECOMMENDATION TO CHANGE DIET TO [facility] 60GMS RENAL MECHANICAL SOFT. INFORMED AND APPROVED BY DR. HALE.
[2022-02-23 16:00] VITALS: BP 118/65
--- NOTE | 2022-02-23 16:18 | NUR ---
DC PLANNING PATIENT IS A 61 YR OLD MALE WHO PRESENTED TO THE [facility]/ED ON 02/20/22 FOR WORSENING RIGHT FOOT INFECTION. SW MET WITH PATIENT AT BEDSIDE FOR THE PURPOSE OF DISCUSSING AND GATHERING COLLATERAL INFORMATION. PATIENT REPORTS LIVING FAMILY FRIENDS AT THE ADDRESS LISTED. PATIENT REPORTS EMERGENCY CONTACT AND MEDICAL DECISION MAKER SAFIA GONZALEZ ([phone]). SW INQUIRED ON A.D, PATIENT DENIED CURRENTLY HAVING A.D IN PLACE. SW PROVIDED PATIENT WITH INFORMATION AND EDUCATION ON A.D. CLIENT WAS RECEPTIVE AND ACCEPTED PACKET OFFERED BY SW. PATIENT REPORTS BEING CONSISTENT WITH MEET WITH PCP AND REPORTS LAST VISIT ONE MONTH AGO. PATIENT REPORTED THAT SEVERAL REFERRALS HAD BEEN MADE BY PCP AND PATIENT WILL BE FOLLOWING UP WITH REFERRALS ONCE CLEARED FOR DISCHARGE. PATIENT REPORTS NO BARRIERS IN ACCESSING MEDICATIONS AND REPORTS BEING MEDICATION COMPLIANT. PATIENT REPORTS RECEIVING MEDICATIONS FROM [facility] [place] WHEN NEEDED. PATIENT REPORTS THAT HIS PLAN IS TO DISCHARGE HOME AND THAT FAMILY FRIENDS WOULD BE PROVIDING TRANSPORTATION AND AIDING IN HIS CARE IF NEEDED. PATIENT REPORTS BEING AMBULATORY WITH ASSISTANCE; WALKER OR CANE. SW INQUIRED ON ANY ADDITIONAL RESOURCES NEEDED; PATIENT DECLINED. SW WILL FOLLOW UP NEEDED.
--- NOTE | 2022-02-23 17:00 | NUR ---
BLOOD SUGAR CHECKED GIVEN INSULIN COVERAGE ALSO GIVEN ORAL MEDICATION TOLERATED WELL. NO ADVERSE REACTION NOTED ON ANTIBIOTIC THERAPY.
--- NOTE | 2022-02-23 19:43 | NUR ---
ENDORSED PT TO STUD DAIRY CATTLE FARMER NURSE FOR CONTINUITY OF CARE. ALL NEEDS MET THROUGHOUT SHIFT. PT IS STABLE.
[2022-02-23 20:00] VITALS: BP 129/69
[2022-02-24] MEDS: PIPERACILLIN/TAZOBACTAM 3.375 GM in DEXTROSE 5% 50 ML IV SCH ×3 (05:12→22:34)
[2022-02-24 05:56] LABS: ANION GAP 10.1 (8-16); BASOPHILS % (AUTO) 0.1 % (0.0-2.0); CARBON DIOXIDE 28.1 mmol/L (21-32); CREATININE 1.1 mg/dL (0.6-1.3); EOSINOPHILS # (AUTO) 0.1 K/uL (0-0.4); EOSINOPHILS % (AUTO) 0.5 % (0.0-4.0); HEMATOCRIT 30.6 % (36-52); LYMPHOCYTES # (AUTO) 1.1 K/uL (2.0-11.5); LYMPHOCYTES % (AUTO) 5.2 % (20.5-51.1); MEAN CORPUSCULAR HEMOGLOBIN 29 pg (27-31); MEAN CORPUSCULAR HGB CONC 33 g/dL (33-37); MEAN CORPUSCULAR VOLUME 87.5 fL (80-94); MONOCYTES # (AUTO) 1.4 K/uL (0.8-1.0); MONOCYTES % (AUTO) 6.4 % (1.7-9.3); NEUTROPHILS # (AUTO) 19.1 K/uL (1.8-7.7); NEUTROPHILS % (AUTO) 87.8 % (42.2-75.2); PLATELET COUNT (AUTO) 442 K/uL (140-450); POTASSIUM 3.2 mmol/L (3.5-5.1); RED CELL DISTRIBUTION WIDTH 15.6 % (11.6-13.7); WHITE BLOOD COUNT (AUTO) 21.7 K/uL (4.8-10.8)
[2022-02-24] MEDS: NACL 0.9% 1,000 ML IV SCH ×3 (06:29→22:33)
[2022-02-24] MEDS: BLOOD GLUCOSE MONITORING 1 DEV DEV FS SCH ×4 (06:30→21:00)
[2022-02-24] MEDS: INSULIN LISPRO SLIDING SCALE 100 UNITS/ML VIAL SUBQ PRN ×2 (06:41→11:59)
[2022-02-24 08:00] VITALS: BP 130/65
[2022-02-24] MEDS: hydroCHLOROthiazide 25 MG TAB PO SCH (09:19)
[2022-02-24] MEDS: BENAZEPRIL 20 MG TAB PO SCH (09:20)
[2022-02-24] MEDS: MAGNESIUM OXIDE 400 MG TAB PO SCH (09:20)
[2022-02-24] MEDS: PANTOPRAZOLE 40 MG TABEC PO SCH (09:20)
[2022-02-24] MEDS: glipiZIDE 10 MG TAB PO SCH ×2 (09:24→16:30)
[2022-02-24 16:00] VITALS: BP 137/80
--- NOTE | 2022-02-24 18:56 | NUR ---
COVID SPECIMEN COLLECTED AND SENT TO LAB.
--- NOTE | 2022-02-24 19:45 | NUR ---
RECEIVD PT FROM AM NURSE FOR CONTINUITY OF CARE.PT IS STABLE
--- NOTE | 2022-02-24 20:00 | NUR ---
ASSISTED DR ROB TO ASSESS AND CHANGE WOUND DRESSING ON THE PT. SCHEDULED FOR RT SIDE DEBRIDEMENTOF ALL NECROTIC TISSUE,BONE,APPLICATION OF WOUND VAC. PT WILL BE NPO POST MIDNIGHT.
--- NOTE | 2022-02-24 22:11 | NUR ---
PHONE CALL TO DR STUART HERMAN ONE TIME ORDER,NO DOSE NOTED.LEFT MESSAGE TO CALL RN BACK.AWAITING REPLY
[2022-02-24] MEDS: POTASSIUM CHLORIDE 10 MEQ TABER PO PRN (22:36)
--- NOTE | 2022-02-24 22:48 | NUR ---
PHONE CALL AGAIN TO DR DAVIDSON REGARDING LEVAQUIN, STILL AWAITING REPLY FROM PHYSICIAN
--- NOTE | 2022-02-24 23:35 | NUR ---
LEVAQUIN 500 MG IVP ADMINISTERED IVP PER DR ORDER. NO ADVERSE REACTIONS NOTED
[2022-02-24] MEDS ORDERED: LEVOFLOXACIN 500 MG/D5W PREMIX 100 ML IV SCH (23:45)
[2022-02-25] VITALS: BP 129/70
--- NOTE | 2022-02-25 02:00 | NUR ---
PT ASLEEP,RESPIRATIONS EVEN AND UNLABORED,NO DISTRESS NOTED
[2022-02-25] MEDS: NACL 0.9% 1,000 ML IV SCH ×5 (03:35→21:11)
[2022-02-25 04:00] VITALS: BP 132/55
--- NOTE | 2022-02-25 04:00 | NUR ---
PATIENTS IV CAME OFF, INSERTED NEW IV ON LEFT WRIST,INTACT AND PATENT,
[2022-02-25] MEDS: PIPERACILLIN/TAZOBACTAM 3.375 GM in DEXTROSE 5% 50 ML IV SCH ×3 (05:10→20:10)
[2022-02-25 05:24] LABS: BASOPHILS % (AUTO) 0.1 % (0.0-2.0); EOSINOPHILS # (AUTO) 0.1 K/uL (0-0.4); EOSINOPHILS % (AUTO) 0.4 % (0.0-4.0); HEMATOCRIT 33.3 % (36-52); LYMPHOCYTES % (AUTO) 5.6 % (20.5-51.1); MEAN CORPUSCULAR HEMOGLOBIN 29 pg (27-31); MEAN CORPUSCULAR HGB CONC 33 g/dL (33-37); MEAN CORPUSCULAR VOLUME 86.8 fL (80-94); MONOCYTES # (AUTO) 1.2 K/uL (0.8-1.0); MONOCYTES % (AUTO) 6.8 % (1.7-9.3); NEUTROPHILS # (AUTO) 15.5 K/uL (1.8-7.7); NEUTROPHILS % (AUTO) 87.1 % (42.2-75.2); PLATELET COUNT (AUTO) 473 K/uL (140-450); RED BLOOD CELL COUNT(AUTO) 3.84 MIL/uL (4.20-6.10); RED CELL DISTRIBUTION WIDTH 15.5 % (11.6-13.7); WHITE BLOOD COUNT (AUTO) 17.8 K/uL (4.8-10.8)
[2022-02-25 05:55] LABS: CARBON DIOXIDE 28.6 mmol/L (21-32); CREATININE 1.1 mg/dL (0.6-1.3); POTASSIUM 3.6 mmol/L (3.5-5.1)
--- NOTE | 2022-02-25 06:00 | NUR ---
PATIENT IS AWAKE, NO COMPLAIN OF PAIN,RESPIRATIONS EVEN AND UNLABORED,NO DISTRESS NOTED
[2022-02-25] MEDS: INSULIN LISPRO SLIDING SCALE 100 UNITS/ML VIAL SUBQ PRN ×3 (06:37→20:14)
[2022-02-25] MEDS: BLOOD GLUCOSE MONITORING 1 DEV DEV FS SCH ×4 (06:49→20:09)
--- NOTE | 2022-02-25 07:15 | NUR ---
RECEIVED PT WAKE LYING ON THE BED WITH SIDE RAILS UP AND CALL LIGHT WITHIN REACH, IV LINE NOTED ON THE LFA G. 22 WITH NS INFUSING AT 135ML/HR, INTACT, PT HAS A DRESSING IN PLACE ON THE RIGHT FOOT, NO SIGN OF DISTRESS NOTED AND WILL CONTINUE TO MONITOR PT.
[2022-02-25 08:00] VITALS: BP 148/79
[2022-02-25] MEDS: hydroCHLOROthiazide 25 MG TAB PO SCH (08:25)
[2022-02-25] MEDS: MAGNESIUM OXIDE 400 MG TAB PO SCH (08:25)
[2022-02-25] MEDS: PANTOPRAZOLE 40 MG TABEC PO SCH (08:25)
[2022-02-25] MEDS: BENAZEPRIL 20 MG TAB PO SCH (08:26)
[2022-02-25] MEDS: glipiZIDE 10 MG TAB PO SCH ×2 (08:26→16:15)
--- NOTE | 2022-02-25 08:26 | NUR ---
PT IS NPO EXCEPT MEDS FOR SCHEDULED SURGERY TODAY AT 1300, PT WAS GIVEN THE SCHEDULED AM MEDICATIONS NOW, 148/79, PULSE IS 72, BLOOD GLUCOSE IS 179.
[2022-02-25] MEDS ORDERED: ceFAZolin 1,000 MG VIAL ONE (11:32)
[2022-02-25] MEDS ORDERED: HYDROGEN PEROXIDE 3% 240 ML BTL TP ONE (11:33)
[2022-02-25] MEDS ORDERED: fentaNYL citrate 0.05 MG/ML VIAL ONE (11:40)
[2022-02-25] MEDS ORDERED: SEVOFLURANE 250 ML BTL INH ONE (11:42)
[2022-02-25] MEDS ORDERED: BUPIVACAINE-MPF 0.5% 30 ML VIAL INJ ONE (12:03)
[2022-02-25] MEDS ORDERED: SUCCINYLCHOLINE CHLORIDE 200 MG/10 ML VIAL IVP ONE (12:22)
[2022-02-25] MEDS ORDERED: PROPOFOL 200 MG/20 ML VIAL IV ONE (12:22)
[2022-02-25] MEDS ORDERED: ONDANSETRON 4 MG/2 ML VIAL ONE (12:42)
[2022-02-25] MEDS ORDERED: METOCLOPRAMIDE 10 MG/2 ML INJ VIAL IVP PRN ×2 (13:10→13:15)
[2022-02-25] MEDS ORDERED: BLOOD GLUCOSE MONITORING 1 DEV DEV FS ONE (13:10)
[2022-02-25] MEDS ORDERED: NACL 0.9% 1,000 ML IV SCH (13:10)
[2022-02-25] MEDS ORDERED: HYDROmorphone 1 MG/ML AMP IVP PRN (13:15)
--- NOTE | 2022-02-25 13:45 | NUR ---
PT IS BACK TO THE ROOM NOW FROM A DEBRIDEMENT OF THE RIGHT FOOT WITH WOUND VAC PLACED.
[2022-02-25] MEDS ORDERED: BLOOD GLUCOSE MONITORING 1 DEV DEV FS SCH (14:00)
[2022-02-25] MEDS ORDERED: DEXAMETHASONE 4 MG/ML VIAL ONE (15:39)
[2022-02-25 16:00] VITALS: BP 158/106
[2022-02-25] MEDS: HYDROcodone/APAP 7.5/325 MG 1 TAB PO PRN ×2 (16:15→21:07)
--- NOTE | 2022-02-25 19:22 | NUR ---
ENDORSED PT TO NIGHT RN, PT IS AWAKE, EATING AND IS STABLE AT THIS TIME.
--- NOTE | 2022-02-25 20:00 | NUR ---
RECEIVED REPORT FROM AM NURSE. DISCUSSED POC FOR CONTINUITY OF CARE. PT AWAKE, ALERT SITTING UP IN BED WORKING ON COMPUTER. VSS. NAD. REMINDED PT OF FLUID RESTRICTION OF 1000CC. R FOOT DRESSING WITH WOUND VAC D&I. WOUND VAC OUTPUT FOR DAYSHIFT 50CC SANGUINOUS DRAINAGE. R CALF STILL SWOLLEN. L FOOT ALL TOES AMPUTATED. DID NOT LIKE DINNER. FRIEND BROUGHT PT A HAMBURGER INSTEAD. ALL SAFETY MEASURES IN PLACE. CALL LIGHT WITH IN REACH.
--- NOTE | 2022-02-25 21:00 | NUR ---
HS MEDS GIVEN. VSS. NQ=565 COVERED WITH 4 UNITS HUMALOG INSULIN PER SLIDING SCALE. PT C/O R FOOT PAIN 05/16. RECEIVED 1 TAB NORCO . ZOSYN IVPG INFUSED. ALL SAFETY MEASURES IN PLACE. CONTINUE TO MONITOR.
--- NOTE | 2022-02-25 22:00 | NUR ---
PAIN REASSESSMENT NORCO EFFECTIVE. PT SLEEPING RR EVEN AND UNLABORED WITH EQUAL CHEST RISE. NAD. CONTINUE WITH FREQ ROUNDS.
[2022-02-26] VITALS: BP 124/61
--- NOTE | 2022-02-26 03:30 | NUR ---
FREQ ROUNDS. CHECKED PT STABLE AND ASLEEP. RR EVEN AND UNLABORED WITH EQUAL CHEST RISE. ALL SAFETY MEASURES IN PLACE. CALL LIGHT WITHIN REACH. WILL CONTINUE TO MONITOR.
[2022-02-26] MEDS: PIPERACILLIN/TAZOBACTAM 3.375 GM in DEXTROSE 5% 50 ML IV SCH ×3 (04:23→20:34)
[2022-02-26 05:10] LABS: BASOPHILS % (AUTO) 0.1 % (0.0-2.0); EOSINOPHILS # (AUTO) 0.1 K/uL (0-0.4); EOSINOPHILS % (AUTO) 0.3 % (0.0-4.0); HEMATOCRIT 30.8 % (36-52); HEMOGLOBIN 10.1 g/dL (12.0-18.0); LYMPHOCYTES # (AUTO) 1.1 K/uL (2.0-11.5); LYMPHOCYTES % (AUTO) 5.4 % (20.5-51.1); MEAN CORPUSCULAR HEMOGLOBIN 29 pg (27-31); MEAN CORPUSCULAR HGB CONC 33 g/dL (33-37); MEAN CORPUSCULAR VOLUME 87.5 fL (80-94); MONOCYTES # (AUTO) 1.2 K/uL (0.8-1.0); MONOCYTES % (AUTO) 6.1 % (1.7-9.3); NEUTROPHILS # (AUTO) 17.8 K/uL (1.8-7.7); NEUTROPHILS % (AUTO) 88.1 % (42.2-75.2); PLATELET COUNT (AUTO) 461 K/uL (140-450); RED BLOOD CELL COUNT(AUTO) 3.52 MIL/uL (4.20-6.10); RED CELL DISTRIBUTION WIDTH 15.7 % (11.6-13.7); WHITE BLOOD COUNT (AUTO) 20.3 K/uL (4.8-10.8)
[2022-02-26] MEDS: HYDROcodone/APAP 7.5/325 MG 1 TAB PO PRN ×3 (05:29→23:56)
[2022-02-26] MEDS: NACL 0.9% 1,000 ML IV SCH (05:30)
[2022-02-26 05:38] LABS: CARBON DIOXIDE 30.5 mmol/L (21-32); CREATININE 1.2 mg/dL (0.6-1.3); POTASSIUM 3.5 mmol/L (3.5-5.1)
--- NOTE | 2022-02-26 05:45 | NUR ---
LUZ CORMIER. NOTICED R FOOT WOUND DRESSING SATURATED THROUGH THE KERLIX AND PINA WRAP. CHANGED THE DRESSING ACCORDING TO DR DAVIDSON'S ORDERS. DID THE DAY SHIFT DRESSING CHANGE DUE TO SOILING. CLEANSED THE R FOOT PLANTER SURFACE AND MEDIAL ANKLE WITH NORMAL SALINE. PACKED WOUND WITH BETADINE SOAKED GAUZE. COVERED WITH ABD PADS THEN WRAPPED WITH KERLIX AND COVERED WITH AN PINA WRAP. BED BATH AND COMPLETE LINEN CHANGE DONE. WOUND VAC INSERTION SITE DRESSING INTACT AND NOT TOUCHED PER ORDER. R CALF REMAINS SWOLLEN, RED AND HOT TO TOUCH. MEDICATED WITH NORCO7.5/325 1 TAB FOR DISCOMFORT AFTER DRESSING CHANGE. . WOUND VAC HAD 50CC OUTPUT THIS SHIFT. PT IS DIABETIC. BS= 244 COVERED WITH 4UNITS HUMALOG INSULIN PER SLIDING SCALE. ALSO RECEIVED SCHEDULED GLUCOTROL 10 MG PO. PT REMAINS A&OX4. PLAYING GAME ON CELL PHONE. ALL SAFETY MEASURES IN PLACE . CALL LIGHT WITHIN REACH. WILL CONTINUE TO MONITOR.
[2022-02-26] MEDS: BLOOD GLUCOSE MONITORING 1 DEV DEV FS SCH ×4 (06:20→20:36)
[2022-02-26] MEDS: INSULIN LISPRO SLIDING SCALE 100 UNITS/ML VIAL SUBQ PRN ×2 (06:27→12:05)
[2022-02-26] MEDS: glipiZIDE 10 MG TAB PO SCH ×2 (06:30→17:21)
--- NOTE | 2022-02-26 07:15 | NUR ---
RECEIVED REPORT FROM TIME STUDY OBSERVER NURSE. PT AWAKE AND STABLE. ON RA, WITH BREATHING UNLABORED. A&OX4. WOUND VAC FUNCTIONING. FLUIDS ARE RUNNING 120ML/HR, ON LEFT FA, 22G, INFUSING WELL. TIME STUDY OBSERVER NURSE COMPLETED DRESSING CHANGE AT 0545, FOR DAILY DRESSING CHANGE, WILL CHANGE IF SOILED. WILL CONTINUE TO MONITOR.
--- NOTE | 2022-02-26 07:28 | NUR ---
ENDORSED REPORT TO DAY SHIFT RN ELIN AND LEAH GARNER.FOR CONTINUITY OF CARE. PT IS STABLE.
[2022-02-26 08:00] VITALS: BP 125/70
[2022-02-26] MEDS: BENAZEPRIL 20 MG TAB PO SCH (09:47)
[2022-02-26] MEDS: hydroCHLOROthiazide 25 MG TAB PO SCH (09:47)
[2022-02-26] MEDS: PANTOPRAZOLE 40 MG TABEC PO SCH (09:48)
[2022-02-26] MEDS: MAGNESIUM OXIDE 400 MG TAB PO SCH (09:49)
--- NOTE | 2022-02-26 10:45 | NUR ---
DIETARY AT BEDSIDE. PT TOLERATING DIET, EATING 80-90% OF MEAL. NO S/S OF DISTRESS. CALL LIGHT IN REACH. ALL SAFETY MEASURES IN PLACE
--- NOTE | 2022-02-26 12:29 | NUR ---
SPOKE TO MD AND PHARMACY, MD RENEWED MEDICATION. SPOKE TO PT TO CLARIFY ALLERGY FOR NORCO, PT REPORTED NAUSEA THE ONLY SYMPTOM. PT STILL WANTS TO CONTINUE TAKING NORCO.
--- NOTE | 2022-02-26 12:50 | NUR ---
02/26/22 RD FOLLOW UP COMPLETED PLEASE REFER TO NUTRITION ASSESSMENT UNDER CARE ACTIVITY FOR ESTIMATED NUTRITIONAL NEEDS. 1. CONTINUE WITH MECHANICAL SOFT/CCHO 45 GM/RENAL DIET TOLERATED -RECOMMEND BONIFACIO BID PER RD PROTOCOL 2. DISCUSSED PLAN OF CARE WITH RN 3. RD TO FOLLOW-UP 3-5 DAYS, MODERATE RISK REVIEWED BY ALEXANDER AHUMADA RD
[2022-02-26 16:00] VITALS: BP 127/61
--- NOTE | 2022-02-26 16:00 | NUR ---
PT LYING ON HIS BED, AWAKE. NOT IN DISTRESS AT THIS TIME. WILL CONTINUE TO MONITOR.
--- NOTE | 2022-02-26 18:49 | NUR ---
SPOKE TO DR DAVIDSON. RECEIVED ORDER FOR PICC LINE, CONSENT SIGNED. NOTIFIED NURSE OF WOUNDVAC CHANGE TO START TOMORROW 02/[address] DAVIDSON.
--- NOTE | 2022-02-26 19:25 | NUR ---
GAVE REPORT TO WEED BURNER NURSE, PT IS STABLE. DISCUSSED PLAN OF CARE.
--- NOTE | 2022-02-26 19:30 | NUR ---
RECEIVED .REPORT FROM ELIN Ramirez RN FOR CONTINUITY OF CARE. PT IS STABLE IN BED WATCHING TV. A&OX4. DENIES PAIN. ON ROOM AIR WITH NOS/S OF ACUTE DISTRESS. RR EVEN AND UNLABORED WITH EQUAL CHEST RISE. IV SITE LFA 22G INTACT AND PATENT. R FOOT AND R CALF WOUND DRESSING D&I WITH WOUND VAC IN PLACE DRAINING SEROSANGUINOUS DRAINAGE. VOIDING PER URINAL. ALL SAFETY MEASURES IN PLACE. CALL LIGHT WITHIN REACH. ENCOURAGED TO CALL FOR ANY ASSISTANCE. WILL CONTINUE TO MONITOR.
[2022-02-26] MEDS ORDERED: LEVOFLOXACIN 500 MG/D5W PREMIX 100 ML IV ONE (20:00)
--- NOTE | 2022-02-26 21:00 | NUR ---
HS MEDS GIVEN. LZ=832 NO INSULIN COVERAGE NEEDED. EDUCATED PT RE: DIET, CONSUMPTION OF SODAS AND WOUND HEALING. VSS. ALL QUESTIONS ANSWERED. ALL SAFETY MEASURES IN PLACE. WILL CONTINUE WITH FREQ ROUNDS.
--- NOTE | 2022-02-26 21:30 | NUR ---
1ST DOSE OF LEVAQUIN IVPB INFUSED. NO REACTION NOTED. PT SLEEPING. VOIDING PER URINAL. R FOOT DRESSING INTACT. R CALF STILL SWOLLEN, WARM TO TOUCH. NO ACUTE DISTRESS NOTED. ALL SAFETY MEASURES IN PLACE. CALL LIGHT WITHIN REACH. WILL CONTINUE TO MONITOR.
--- NOTE | 2022-02-26 23:50 | NUR ---
PT C/O 7/10 R FOOT PAIN. DRESSING INTACT. HEEL, ANKLE AND CALF WARM TO TOUCH , SWOLLEN AND RED. PT RESTING ON R SIDE FOR COMFORT. VOIDING PER URINAL 200CC CLEAR YELLOW URINE NOW. ALL SAFETY MEASURES IN PLACE. WILL CONTINUE WITH FREQ ROUNDS
[2022-02-27] VITALS: BP 117/63
--- NOTE | 2022-02-27 00:57 | NUR ---
PT DOZING. NO C/O PAIN OR ACUTE DISTRESS NOTED. NORCO EFFECTIVE. RR EVEN AND UNLABORED WITH EQUAL CHEST RISE. CALL LIGHT WITHIN REACH.
[2022-02-27] MEDS: PIPERACILLIN/TAZOBACTAM 3.375 GM in DEXTROSE 5% 50 ML IV SCH ×3 (04:11→21:04)
[2022-02-27 05:06] LABS: ANION GAP 6.9 (8-16); BASOPHILS % (AUTO) 0.3 % (0.0-2.0); CARBON DIOXIDE 32.6 mmol/L (21-32); CREATININE 1.1 mg/dL (0.6-1.3); EOSINOPHILS # (AUTO) 0.1 K/uL (0-0.4); EOSINOPHILS % (AUTO) 0.7 % (0.0-4.0); HEMATOCRIT 32.7 % (36-52); HEMOGLOBIN 10.4 g/dL (12.0-18.0); LYMPHOCYTES # (AUTO) 1.4 K/uL (2.0-11.5); MEAN CORPUSCULAR HEMOGLOBIN 28 pg (27-31); MEAN CORPUSCULAR HGB CONC 32 g/dL (33-37); MEAN CORPUSCULAR VOLUME 87.6 fL (80-94); MONOCYTES # (AUTO) 1.2 K/uL (0.8-1.0); MONOCYTES % (AUTO) 7.2 % (1.7-9.3); NEUTROPHILS # (AUTO) 14.6 K/uL (1.8-7.7); PLATELET COUNT (AUTO) 482 K/uL (140-450); POTASSIUM 3.5 mmol/L (3.5-5.1); RED BLOOD CELL COUNT(AUTO) 3.73 MIL/uL (4.20-6.10); RED CELL DISTRIBUTION WIDTH 15.5 % (11.6-13.7); WHITE BLOOD COUNT (AUTO) 17.4 K/uL (4.8-10.8)
[2022-02-27 05:54] LABS: NEUTROPHILS % (AUTO) 83.8 % (42.2-75.2)
[2022-02-27] MEDS: INSULIN LISPRO SLIDING SCALE 100 UNITS/ML VIAL SUBQ PRN ×4 (06:24→21:24)
[2022-02-27] MEDS: BLOOD GLUCOSE MONITORING 1 DEV DEV FS SCH ×4 (06:37→21:00)
[2022-02-27] MEDS: glipiZIDE 10 MG TAB PO SCH ×2 (06:38→17:00)
--- NOTE | 2022-02-27 06:45 | NUR ---
OB=678 COVERED WITH 2 UNITS HUMALOG INSULIN PER SLIDING SCALE. ALSO RECEIVED GLUCATROL 10 MG TABLET. R FOOT WOUND VAC DRAINING 40 CC SEROSANGUINOUS FLUID. ALL SAFETY MEASURES IN PLACE WILL CONTINUE TO MONITOR. ENDORSED REPORT TO AM NURSE FOR CONTINUITY OF CARE.
--- NOTE | 2022-02-27 07:25 | NUR ---
RECEIVED REPORT FROM CHEMISTRY DEPARTMENT CHAIR NURSE. PT IS LYING ON HIS BED, AWAKE, A&OX4. PT ON ROOM AIR, WITH BREATHING UNLABORED. IV SITE ON LEFT FA, 22G. WOUND VAC IN PLACE ON RIGHT LOWER LEG. DISCUSSED PLAN OF CARE. WILL CONTINUE TO MONITOR.
[2022-02-27 08:00] VITALS: BP 162/84
[2022-02-27] MEDS: PANTOPRAZOLE 40 MG TABEC PO SCH (09:16)
[2022-02-27] MEDS: BENAZEPRIL 20 MG TAB PO SCH (09:16)
[2022-02-27] MEDS: HYDROcodone/APAP 7.5/325 MG 1 TAB PO PRN ×2 (09:16→17:44)
[2022-02-27] MEDS: hydroCHLOROthiazide 25 MG TAB PO SCH (09:17)
--- NOTE | 2022-02-27 09:17 | NUR ---
PT COMPLAINS OF PAIN ON LOWER RIGHT LEG, WITH A 7/10 PAINSCALE. NORCO GIVEN PER DR'S ORDER. WILL CONTINUE TO MONITOR.
[2022-02-27] MEDS: MAGNESIUM OXIDE 400 MG TAB PO SCH (09:18)
--- NOTE | 2022-02-27 12:00 | NUR ---
PT LYING ON HIS BED, AWAKE AND ALERT. PT STABLE AND NOT IN DISTRESS.
--- NOTE | 2022-02-27 13:00 | NUR ---
PROVIDE WOUND CARE. WOUNDVAC DRESSING CHANGED. R FOOT DRESSING CHANGED. PT TOLERATED WELL. NO S/S OF DISTRESS. PICC LINE NURSE ARRIVED AND WILL BEGIN INSERTION.
--- NOTE | 2022-02-27 13:48 | NUR ---
PICC LINE NURSE AT BEDSIDE. MIDLINE INSERTED. PICC LINE NURSE STATED THEY WERE UNABLE TO PASS THROUGH SUBCLAVIAN FOR PICC INSERTION
[2022-02-27 16:00] VITALS: BP 146/71
[2022-02-27] MEDS ORDERED: VANCOMYCIN PER PHARMACY MC PRN (16:40)
--- NOTE | 2022-02-27 17:44 | NUR ---
PT COMPLAINED OF PAIN AT RIGHT LOWER LEG, FROM 7 OUT 10 PAIN SCALE. NORCO GIVEN PER DR'S ORDER. WILL CONTINUE TO MONITOR.
--- NOTE | 2022-02-27 18:01 | NUR ---
RECEIVED A DELIVERY(WOUNDVAC MACHINE) AT THE LOBBY FOR PT.
--- NOTE | 2022-02-27 19:20 | NUR ---
GAVE REPORT TO MOTOR EQUIPMENT CAPTAIN NURSE. PT IS STABLE. DISCUSSED PLAN OF CARE.
--- NOTE | 2022-02-27 20:30 | NUR ---
CHECK WOUND VACC MACHINE - FUNCTIONING , MIDLINE FLUSHED W/ NSS - INTACT AND PATENT - WILL GIVE ABXS. ORDERED .
[2022-02-27] MEDS: VANCOMYCIN 1,000 MG in DEXTROSE 5% 250 ML IV SCH (22:30)
[2022-02-27] MEDS ORDERED: VANCOMYCIN 1,000 MG VIAL ONE (22:57)
[2022-02-28] VITALS: BP 130/60
--- NOTE | 2022-02-28 | NUR ---
ROUNDS , NO COMPLAIN MADE .
--- NOTE | 2022-02-28 02:00 | NUR ---
PT WATCHING MOVIE THRU HIS IPHONE - NO COMPLAIN MADE
--- NOTE | 2022-02-28 04:00 | NUR ---
ROUNDS , NO COMPLAIN MADE .
[2022-02-28] MEDS ORDERED: VANCOMYCIN 1,000 MG VIAL ONE (05:30)
[2022-02-28 05:36] LABS: ANION GAP 8.4 (8-16); CARBON DIOXIDE 31.7 mmol/L (21-32); CREATININE 1.2 mg/dL (0.6-1.3)
[2022-02-28 05:37] LABS: POTASSIUM 4.1 mmol/L (3.5-5.1)
--- NOTE | 2022-02-28 06:00 | NUR ---
C/O PAIN WILL MEDICATE .
[2022-02-28] MEDS: VANCOMYCIN 1,000 MG in DEXTROSE 5% 250 ML IV SCH (06:10)
[2022-02-28 06:12] LABS: BASOPHILS % (AUTO) 0.2 % (0.0-2.0); EOSINOPHILS % (AUTO) 0.3 % (0.0-4.0); HEMATOCRIT 33.1 % (36-52); HEMOGLOBIN 10.9 g/dL (12.0-18.0); LYMPHOCYTES # (AUTO) 1.2 K/uL (2.0-11.5); LYMPHOCYTES % (AUTO) 7.6 % (20.5-51.1); MEAN CORPUSCULAR HEMOGLOBIN 29 pg (27-31); MEAN CORPUSCULAR HGB CONC 33 g/dL (33-37); MEAN CORPUSCULAR VOLUME 86.6 fL (80-94); MONOCYTES % (AUTO) 6.2 % (1.7-9.3); NEUTROPHILS # (AUTO) 13.8 K/uL (1.8-7.7); NEUTROPHILS % (AUTO) 85.7 % (42.2-75.2); PLATELET COUNT (AUTO) 525 K/uL (140-450); RED BLOOD CELL COUNT(AUTO) 3.82 MIL/uL (4.20-6.10); RED CELL DISTRIBUTION WIDTH 15.5 % (11.6-13.7); WHITE BLOOD COUNT (AUTO) 16.1 K/uL (4.8-10.8)
[2022-02-28] MEDS: BLOOD GLUCOSE MONITORING 1 DEV DEV FS SCH ×4 (06:21→21:29)
[2022-02-28] MEDS: HYDROcodone/APAP 7.5/325 MG 1 TAB PO PRN ×3 (06:35→17:18)
[2022-02-28] MEDS: INSULIN LISPRO SLIDING SCALE 100 UNITS/ML VIAL SUBQ PRN ×3 (06:39→22:19)
--- NOTE | 2022-02-28 07:05 | NUR ---
RECEIVED REPORT FROM EXTRUDER OPERATOR HELPER NURSE. PT IS AWAKE, ,A&OX4. ON ROOM AIR. PT IS BED BOUND. WOUND VAC IN PLACE, LOCATED AT RIGHT DISTAL LEG. IV SITE ON LEFT FA, 22G. PT IS STABLE. DISCUSSED PLAN OF CARE.
--- NOTE | 2022-02-28 07:33 | NUR ---
ENDORSED - PT - STABLE . CALL LIGHT WITHIN REACH .
[2022-02-28] MEDS: glipiZIDE 10 MG TAB PO SCH ×2 (07:42→16:54)
[2022-02-28 08:00] VITALS: BP 157/78
[2022-02-28] MEDS: MAGNESIUM OXIDE 400 MG TAB PO SCH (09:00)
[2022-02-28] MEDS: hydroCHLOROthiazide 25 MG TAB PO SCH (09:00)
--- NOTE | 2022-02-28 10:00 | NUR ---
RECEIED CALL FROM [facility], STATING THAT VANCOMYCIN IS NOW Q12H, STARTING AT 1700.
[2022-02-28] MEDS: PANTOPRAZOLE 40 MG TABEC PO SCH (10:12)
[2022-02-28] MEDS: BENAZEPRIL 20 MG TAB PO SCH (10:13)
--- NOTE | 2022-02-28 10:58 | NUR ---
PT COMPLAINED PAIN AT LOWER RIGHT LEG, PAIN SCALE OF 7/10. NORCO GIVEN PER DR'S ORDER.
[2022-02-28 16:00] VITALS: BP 127/63
[2022-02-28] MEDS: VANCOMYCIN 1,000 MG in NACL 0.9% 250 ML IV SCH (16:55)
--- NOTE | 2022-02-28 16:55 | NUR ---
STARTED VANCOMYCIN AT 165ML/HR. IV INFUSING WELL.
--- NOTE | 2022-02-28 17:30 | NUR ---
PROVIDE WOUND CARE. R FOOT DRESSING CHANGED. PT TOLERATED WELL. NO S/S OF DISTRESS.
[2022-02-28] MEDS: PIPERACILLIN/TAZOBACTAM 3.375 GM in DEXTROSE 5% 50 ML IV SCH ×2 (18:21→19:01)
[2022-02-28] MEDS ORDERED: PIPERACILLIN/TAZOBACTAM 3.375 GM VIAL IV ONE ×2 (18:53→23:36)
--- NOTE | 2022-02-28 19:01 | NUR ---
STARTED ZOSYN MEDICATION AT 100ML/HR. IV INFUSING WELL.
--- NOTE | 2022-02-28 19:20 | NUR ---
GAVE REPORT TO NUTRITION PROFESSOR NURSE. DISCUSSED PLAN OF CARE. PT IS STABLE.
--- NOTE | 2022-02-28 23:49 | NUR ---
PATIENT AWAKE ALERT NO C/O SLEEPING ON ROOM AIR SAT 96%. LUNGS DIMINISH. TEMP 97.8 HAS LEFT FOREARM 22 GA PATENT. USES URINAL BLOOD SUGAR 2100 208 RECEIVED 4 UNITS OF HUMALOG S.Q. POSS D/C HOME IN A.M WITH WOUND VAC. WOUND VAC TO BE CHANGE 03/02/22. NO DISTRESS AT THIS TIME.
[2022-03-01] VITALS: BP 132/77
[2022-03-01] MEDS: VANCOMYCIN 1,000 MG in NACL 0.9% 250 ML IV SCH ×2 (05:00→17:05)
[2022-03-01] MEDS ORDERED: PIPERACILLIN/TAZOBACTAM 3.375 GM VIAL IV ONE (05:11)
[2022-03-01] MEDS: PIPERACILLIN/TAZOBACTAM 3.375 GM in DEXTROSE 5% 50 ML IV SCH ×6 (06:00→23:25)
[2022-03-01] MEDS: INSULIN LISPRO SLIDING SCALE 100 UNITS/ML VIAL SUBQ PRN ×4 (06:25→20:37)
[2022-03-01] MEDS: BLOOD GLUCOSE MONITORING 1 DEV DEV FS SCH ×4 (06:26→20:28)
[2022-03-01 07:23] LABS: BASOPHILS % (AUTO) 0.1 % (0.0-2.0); EOSINOPHILS # (AUTO) 0.1 K/uL (0-0.4); EOSINOPHILS % (AUTO) 0.5 % (0.0-4.0); HEMATOCRIT 32.7 % (36-52); HEMOGLOBIN 10.8 g/dL (12.0-18.0); LYMPHOCYTES # (AUTO) 1.3 K/uL (2.0-11.5); LYMPHOCYTES % (AUTO) 9.3 % (20.5-51.1); MEAN CORPUSCULAR HEMOGLOBIN 28 pg (27-31); MEAN CORPUSCULAR HGB CONC 33 g/dL (33-37); MONOCYTES # (AUTO) 0.8 K/uL (0.8-1.0); MONOCYTES % (AUTO) 5.5 % (1.7-9.3); NEUTROPHILS % (AUTO) 84.6 % (42.2-75.2); PLATELET COUNT (AUTO) 589 K/uL (140-450); RED CELL DISTRIBUTION WIDTH 15.8 % (11.6-13.7); WHITE BLOOD COUNT (AUTO) 14.2 K/uL (4.8-10.8)
[2022-03-01 07:44] LABS: MAGNESIUM 1.8 mg/dL (1.8-2.4); PHOSPHORUS 4.2 mg/dL (2.5-4.9)
--- NOTE | 2022-03-01 07:46 | NUR ---
RECEIVE ENDORSEMENT FROM PM SHIFT NURSE THAT PATIENT STABLE W/ PICC AT [facility]. LAB CALL TO REPORT THAT PATIENT'S VANCO. TROUGH 28. HOLD VANCO.
[2022-03-01] MEDS: glipiZIDE 10 MG TAB PO SCH ×2 (07:54→17:05)
[2022-03-01 08:00] VITALS: BP 144/92
[2022-03-01 08:10] LABS: ANION GAP 9.6 (8-16); CREATININE 1.2 mg/dL (0.6-1.3); POTASSIUM 3.6 mmol/L (3.5-5.1)
[2022-03-01] MEDS: MAGNESIUM OXIDE 400 MG TAB PO SCH (09:00)
[2022-03-01] MEDS: BENAZEPRIL 20 MG TAB PO SCH (10:21)
[2022-03-01] MEDS: hydroCHLOROthiazide 25 MG TAB PO SCH (10:22)
[2022-03-01] MEDS: PANTOPRAZOLE 40 MG TABEC PO SCH (10:22)
[2022-03-01] MEDS ORDERED: PANT40EC56 PO (10:37)
[2022-03-01] MEDS ORDERED: PIPE1SOL IV (10:37)
[2022-03-01] MEDS ORDERED: DOCU-299 PO (10:37)
[2022-03-01] MEDS ORDERED: VANC1PLA7 IV (10:37)
--- NOTE | 2022-03-01 11:30 | NUR ---
[address] DAVIDSON AND CLARIFY WOUND VAC CARE, AT THIS TIME ONLY RIGHT CALF HAS WOUND VAC DRESSING ON. PER DR. DAVIDSON OKAY TO APPLY WOUND VAC GRANUFOAM DRESSING TO RIGHT 2ND TOE AND PLANTAR S/P I&D SURGICAL WOUND AND RIGHT MEDIAL LOWER LEG. SURGICAL WOUND IF ABLE TO.EXPLAIN TO DR. DAVIDSON, WILL TRY TO USE BRIDGE TECHNIQUE AND Y CONNECTOR FOR MULTIPLE SITES. REPORT TO DR. DAVIDSON RIGHT MEDIAL LOWER LEG WOUND WITH TENDON EXPOSE, PER DR. DAVIDSON THAT HE IS AWARE OF. DR. ADVIDSON ALSO TALK TO CHARGE NURSE,DISCHARGE PLANNING. ALSO, EXPLAINED TO DR. [facility] 2XPER WEEK ON TUESDAY AND TUESDAY. WOUND VAC DRESSING APPLIED AND CONNECTED TO HOME UNIT VAC MACHINE, FUNCTIONING. POC DISCUSSED WITH PT. INCLUDING WOUND VAC DRESSING CHANGE, VAC MACHINE CARE AND RETURNING PROCEDURES. PT. VERBALIZES UNDERSTANDING. POC DISCUSSED WITH PRIMARY RN.WOUND PHOTO TAKING BY PRIMARY RN. -RIGHT MEDIAL LOWER LEG SURGICAL WOUND [id number] FULL THICKNESS SKIN LOSS, 30 % YELLOW SLOUGH TISSUE, 70% RED GRANULATION TISSUE, MUSCLE AND TENDON SHOWS, TENDON SHINE SMOOTH WITH MUSCLE ARE MOIST. WOUND BED MODERATE AMOUNT OF SEROUS DRAINAGE, NO ODOR, CRYSTAL WOUND DRY AND INTACT, PAIN 0/10 -RIGHT 2ND TOE TO PLANTAR WITH 2ND TOE AMPUTATION SURGICAL WOUND, WOUND BED [id number] WOUND BED, 100% PINK GRANULATION TISSUE,MOIST, NO ODOR, CRYSTAL WOUND SKIN MOIST AND INTACT, PAIN 0/10 -RIGHT CALF WOUND VAC DRESSING DRY AND CLEAN, PER STUART, NO NEED TO CHANGE TODAY RECOMMENDATION: -CLEANSE RIGHT LE MULTIPLE SURGICAL WOUNDS WITH NS, PAT DRY, APPLY KCI VAC THERAPY TO WOUNDS, FOLLOW V.A.C. THERAPY CLINICAL GUIDELINES. SET THERAPY ON CONTINUOUS THERAPY AT 125 MMHG. CHANGE DRESSING 2X/WEEK ON TUESDAY AND TUESDAY AND PRN IF SOILING. -APPLY HEEL RAISER TO RIGHT HEEL AND OFFLOAD HEEL Addendum: 03/03/22 at 1227 by Kaleigh Obrien RN (Grace) CORRECTION: -CLEANSE RIGHT LE MULTIPLE SURGICAL WOUNDS WITH NS, PAT DRY, APPLY KCI VAC THERAPY TO WOUNDS, FOLLOW V.A.C. THERAPY CLINICAL GUIDELINES. SET THERAPY ON CONTINUOUS THERAPY AT 125 MMHG. CHANGE DRESSING 2X/WEEK ON TUESDAY AND TUESDAY AND PRN IF SOILING
[2022-03-01] MEDS: HYDROcodone/APAP 7.5/325 MG 1 TAB PO PRN ×2 (12:56→23:21)
[2022-03-01 16:00] VITALS: BP_SYST 142; BP_SYST 144; BP_DIAS 82; BP_DIAS 90
--- NOTE | 2022-03-01 19:29 | NUR ---
ENDORSE PT TO PM SHIFT NURSE THAT PATIENT STABLE W/ PICC AT CODY PATENT, IV INFUSING
--- NOTE | 2022-03-01 19:30 | NUR ---
RECEIVED PATIENT FROM DUC GALLEGO. PATIENT IN ROOM IN BED FINISHED ALL HIS DINNER. PATIENT IS IN BED ALERT AND ORIENT X 4. CAN COMMUNICATE ALL HIS NEEDS. DENIES ALEAH PAIN/DISCOMFORT AT THIS TIME. PATIENT IS ON ROOM AIR WITHOUT ANY ACUTE RESPIRATORY DISTRESS. BED AT THE LOWEST POSITION WITH HEAD OF BED SLIGHT ELEVATED AT 45 DEGREES TO WATCH TV. CALL LIGHT WITH REACH AND ENCOURAGED TO USE IT FOR ANY AND ALL ASSISTANCE. PATIENT UNDERSTOOD AND AGREED. SIDE RAILS UP X2 FOR PATIENT TO SELF ADJUST FOR COMFORT AND REPOSITIONING. [email or web address]
--- NOTE | 2022-03-01 20:00 | NUR ---
REVIEWED CARE PLAN WITH GALDINO SCHMITT LVN .
--- NOTE | 2022-03-01 20:00 | NUR ---
REVIEWED CARE .PLAN WITH GALDINO SCHMITT LVN.
--- NOTE | 2022-03-01 20:58 | NUR ---
DR DAVIDSON SPOKE WITH PATIENT REGARDING DISCHARGE. nO DISCHARGE UNTIL HOME HEALTH SERVICES HAVE BEEN CONFIRMED FOR IV MEDICATION AND WOUND CARE. PATIENT HAS WOUND VAC ON AND FUNCTIONING APPROPRIATELY. PATIENT UNDERSTOOD AND AGREED. EVENING MEDICATION WAS GIVEN. PATIENT TOLERATED IT WELL. CALL LIGHT WITHIN REACH AND ENCOURAGED TO USE IT FOR NURSING ASSISTANCE. [email or web address]
--- NOTE | 2022-03-01 23:30 | NUR ---
PATIENT IN BED PLAYING ON HIS PHONE. RESTING WITHOUT TV ON. HOB ELEVATED TO 45 DEGREES FOR COMFORT. PATIENT WAS GIVEN PAIN PRN FOR FOOT. NO NOTED RESPIRATORY DISTRESS. PATIENT AWARE TO KEEP FOOT ELEVATED ON PILLOW TO PREVENT PRESSURE AND CAUSE MORE PAIN/DISCOMFORT. SIDE RAILS UP X 2. CALL LIGHT WITHIN REACH. [id number]
--- NOTE | 2022-03-02 01:30 | NUR ---
PPATIENT HAS MUSIC PLAYING FROM PHONE. PATIENT IN BED ASLEEP. NO NOTED RESPIRATORY DISTRESS CHEST IS RISING AND FALLING. NO S/SX OF PAIN /DISCOMFORT. SIDE RAILS UP X 2. [email or web address]
--- NOTE | 2022-03-02 03:30 | NUR ---
PATIENT IN BED ASLEEP. NO NOTED RESPIRATORY DISTRESS. NO S/SX OF PAIN DISCOMFORT. SIDE RAILS UP X 3. PATIENT REMAINED CLEAN AND DRY ALL SHIFT. [email or web address]
[2022-03-02 04:00] VITALS: BP 98/56
[2022-03-02] MEDS: VANCOMYCIN 1,000 MG in NACL 0.9% 250 ML IV SCH ×2 (04:23→17:16)
[2022-03-02 05:40] LABS: BASOPHILS % (AUTO) 0.1 % (0.0-2.0); EOSINOPHILS # (AUTO) 0.1 K/uL (0-0.4); EOSINOPHILS % (AUTO) 0.6 % (0.0-4.0); HEMATOCRIT 34.1 % (36-52); HEMOGLOBIN 11.1 g/dL (12.0-18.0); LYMPHOCYTES # (AUTO) 1.6 K/uL (2.0-11.5); LYMPHOCYTES % (AUTO) 11.6 % (20.5-51.1); MEAN CORPUSCULAR HEMOGLOBIN 28 pg (27-31); MEAN CORPUSCULAR HGB CONC 33 g/dL (33-37); MEAN CORPUSCULAR VOLUME 87.1 fL (80-94); MONOCYTES # (AUTO) 0.9 K/uL (0.8-1.0); MONOCYTES % (AUTO) 6.7 % (1.7-9.3); NEUTROPHILS # (AUTO) 10.9 K/uL (1.8-7.7); PLATELET COUNT (AUTO) 673 K/uL (140-450); RED BLOOD CELL COUNT(AUTO) 3.92 MIL/uL (4.20-6.10); RED CELL DISTRIBUTION WIDTH 15.6 % (11.6-13.7); WHITE BLOOD COUNT (AUTO) 13.4 K/uL (4.8-10.8)
[2022-03-02 06:18] LABS: MAGNESIUM 1.8 mg/dL (1.8-2.4); PHOSPHORUS 4.3 mg/dL (2.5-4.9)
[2022-03-02] MEDS: PIPERACILLIN/TAZOBACTAM 3.375 GM in DEXTROSE 5% 50 ML IV SCH ×4 (06:18→23:46)
[2022-03-02] MEDS: BLOOD GLUCOSE MONITORING 1 DEV DEV FS SCH ×4 (06:40→20:58)
[2022-03-02] MEDS: INSULIN LISPRO SLIDING SCALE 100 UNITS/ML VIAL SUBQ PRN ×4 (06:41→20:57)
[2022-03-02] MEDS: glipiZIDE 10 MG TAB PO SCH ×2 (06:44→17:15)
--- NOTE | 2022-03-02 06:55 | NUR ---
ACCUCHECK WAS COMPLETED 2 UNITS GIVEN FOR 163 VALUE. PATIENT TOLERATED IT WELL. NO COMPLAINTS OF PAIN/DISCOMFORT AT THIS TIME. SIDE RAILS UP X 2 FOR ADJUSTMENT. [email or web address]
--- NOTE | 2022-03-02 07:09 | NUR ---
PATIENT WAS ENDORSE TO DUC GALLEGO FOR CONTINUITY OF CARE. [email or web address]
--- NOTE | 2022-03-02 07:51 | NUR ---
RECEIVE ENDORSEMENT FROM PM SHIFT NURSE W/ PT IN STABLE CONDITION, PICC CODY PATENT. WILL CONTINUE TO MONITOR
[2022-03-02] MEDS: PANTOPRAZOLE 40 MG TABEC PO SCH (08:39)
[2022-03-02] MEDS: BENAZEPRIL 20 MG TAB PO SCH (08:41)
[2022-03-02] MEDS: hydroCHLOROthiazide 25 MG TAB PO SCH (08:41)
[2022-03-02] MEDS: MAGNESIUM OXIDE 400 MG TAB PO SCH (08:42)
[2022-03-02] MEDS ORDERED: LEVOFLOXACIN 500 MG/D5W PREMIX 100 ML IV SCH (09:00)
[2022-03-02 11:14] VITALS: BP 134/67
[2022-03-02 12:00] VITALS: BP 134/67
[2022-03-02 15:40] VITALS: BP 134/67
--- NOTE | 2022-03-02 19:33 | NUR ---
ENDORSE PT TO PM SHIFT NURSE W/ STABLE CONDITION, PICC CODY PATENT, IV ZOSYN INFUSING. PATIENT'S D/C PACKAGE INITIATE, WAITING FOR HOME HEALTH INFORMATION.
--- NOTE | 2022-03-02 19:35 | NUR ---
RECEIVED PT FROM AM NURSE FOR CONTINUITY OF CARE.PT IS STABLE
[2022-03-02 20:00] VITALS: BP 131/70
[2022-03-02] MEDS: HYDROcodone/APAP 7.5/325 MG 1 TAB PO PRN (20:54)
--- NOTE | 2022-03-02 21:30 | NUR ---
ALL MEDICATIONS GIVEN,TOLERATED WELL,NO ADVERSE REACTIONS NOTED
--- NOTE | 2022-03-03 | NUR ---
PATIENT ASLEEP.BREATHING EVEN AND UNLABORED,NO DISTRESS NOTED
--- NOTE | 2022-03-03 02:00 | NUR ---
PATIENT IS AWAKE WATCHUING TV,NO COMPLAIN OF PAIN,NO SOB NOTED.
[2022-03-03 04:00] VITALS: BP 131/70
--- NOTE | 2022-03-03 04:00 | NUR ---
PATIENT ASLEEP ,BREATHING EVEN AND UNLABORED,NO DISTRESS NOTED.
[2022-03-03] MEDS: VANCOMYCIN 1,000 MG in NACL 0.9% 250 ML IV SCH ×2 (05:12→17:37)
--- NOTE | 2022-03-03 06:00 | NUR ---
ALL ANTIBIOTICS GIVEN,NOADVERSE REACTIONS NOTED,NO DISTRESS NOTED
[2022-03-03 06:21] LABS: MAGNESIUM 1.8 mg/dL (1.8-2.4); PHOSPHORUS 3.8 mg/dL (2.5-4.9)
[2022-03-03] MEDS: PIPERACILLIN/TAZOBACTAM 3.375 GM in DEXTROSE 5% 50 ML IV SCH ×3 (06:23→18:26)
[2022-03-03] MEDS: BLOOD GLUCOSE MONITORING 1 DEV DEV FS SCH ×3 (06:51→12:47)
[2022-03-03] MEDS: glipiZIDE 10 MG TAB PO SCH ×2 (07:30→16:58)
--- NOTE | 2022-03-03 07:41 | NUR ---
ENDORSED PT TO AM NURSE FOR COBTINUITY OF CARE.PT IS STABLE
[2022-03-03] MEDS: BENAZEPRIL 20 MG TAB PO SCH (08:28)
[2022-03-03] MEDS: PANTOPRAZOLE 40 MG TABEC PO SCH (08:29)
[2022-03-03] MEDS: MAGNESIUM OXIDE 400 MG TAB PO SCH (09:46)
[2022-03-03] MEDS: hydroCHLOROthiazide 25 MG TAB PO SCH (09:46)
[2022-03-03] MEDS: INSULIN LISPRO SLIDING SCALE 100 UNITS/ML VIAL SUBQ PRN (12:49)
[2022-03-03 15:18] VITALS: BP 153/79
--- NOTE | 2022-03-03 15:21 | NUR ---
CHANGED WOUND VAC , PT IS COMFORTABLE NO [id number]
--- NOTE | 2022-03-03 16:02 | NUR ---
03/03/22 RD FOLLOW UP COMPLETED PLEASE REFER TO NUTRITION ASSESSMENT UNDER CARE ACTIVITY FOR ESTIMATED NUTRITIONAL NEEDS. 1. CONTINUE MECHANICAL SOFT/CCHO 45 GM/RENAL DIET TOLERATED 2. CONTINUE BONIFACIO TID FOR WOUND HEALING 3. ENCOURAGED PATIENT TO CONTINUE WITH ADEQUATE PO INTAKE AND ORAL SUPPLEMENT FOR WOUND HEALING 4. RD TO FOLLOW-UP 3-5 DAYS, MODERATE RISK REVIEWED BY ALEXANDER AHUMADA RD
[2022-03-03 16:39] VITALS: BP 125/61
== END 2022-03-03 20:15 | disposition home health service (06) | DRG 853 ==
LOC: MED 20:10 → MTU 23:09 → INTOOBSV 02-20 12:08 → OBSVTOIN 02-20 12:08
PROVIDERS: ADMIT Family Medicine; ATTEND Family Medicine
PROC: 0QBN0ZX Excision of Right Metatarsal, Open Approach, Diagnostic (ICD-10-PCS; 2022-02-22)
PROC: 0J9Q0ZZ Drainage of Right Foot Subcutaneous Tissue and Fascia, Open Approach (ICD-10-PCS; 2022-02-22)
PROC: 0Y6M0ZC Detachment at Right Foot, Partial 3rd Ray, Open Approach (ICD-10-PCS; 2022-02-22 07:30)
PROC: 0JBQ0ZZ Excision of Right Foot Subcutaneous Tissue and Fascia, Open Approach (ICD-10-PCS; principal; 2022-02-25 08:50)
DX: A41.9 Sepsis, unspecified organism (principal); E43 Unspecified severe protein-calorie malnutrition; G93.41 Metabolic encephalopathy; N17.0 Acute kidney failure with tubular necrosis; A48.0 Gas gangrene; E87.1 Hypo-osmolality and hyponatremia; L03.115 Cellulitis of right lower limb; N39.0 Urinary tract infection, site not specified; L97.412 Non-pressure chronic ulcer of right heel and midfoot with fat layer exposed; E11.52 Type 2 diabetes mellitus with diabetic peripheral angiopathy with gangrene; L02.415 Cutaneous abscess of right lower limb; E11.621 Type 2 diabetes mellitus with foot ulcer; B96.6 Bacteroides fragilis [B. fragilis] as the cause of diseases classified elsewhere; B96.89 Other specified bacterial agents as the cause of diseases classified elsewhere; Z20.822 Contact with and (suspected) exposure to COVID-19; R74.01 Elevation of levels of liver transaminase levels; E86.0 Dehydration; E87.6 Hypokalemia; I10 Essential (primary) hypertension; J44.9 Chronic obstructive pulmonary disease, unspecified; Z88.5 Allergy status to narcotic agent; Z68.35 Body mass index [BMI] 35.0-35.9, adult; Z89.421 Acquired absence of other right toe(s)
CPT/HCPCS: 96365; 96367; 99291; G0378; 36415; 71045; 73630; 78315; 80048; 80053; 80202; 80305; 81001; 82150; 82948; 83036; 83605; 83690; 83735; 83880; 84100; 84436; 84439; 84443; 84479; 84484; 85025; 85610; 85730; 87040; 87070; 87075; 87081; 87086; 87186; 87205; 88304; 88305; 88311; 93005; 93925; 93971; J0330; J0690; J0696; J1100; J1170; J1815; J1956; J2405; J2543; J2704; J3010; J3370; J3475; J3480; J3490; J7030; J7060; J7120; Q0092

== ENCOUNTER 2022-03-09 11:57 | Emergency (ER) | payer OTHER ==
[~2022-03-09] VITALS: Ht 182.9 cm; Wt 127.0 kg
[~2022-03-09 11:57] MED LIST: ATOR20TA PO; BENA20TA PO; DOCU-299 PO; FLUO40CA6 PO; GLIP10TA3 PO; HYDR-4004 PO; METF-1253 PO; PANT40EC56 PO; PIPE1SOL IV; VANC1PLA7 IV
--- NOTE | 2022-03-09 12:07 | NUR ---
Patient wheelchair assisted to bed 10.
[2022-03-09 12:11] VITALS: BP 136/71
--- NOTE | 2022-03-09 12:23 | NUR ---
61 Y/O MALE BIB FAMILY FRIEND C/O LEAKING PICC LINE X1DAY TO RUE. PT STATES HE WAS RECENTLY D/C FROM HERE WITH PICC LINE X1WEEK AGO. DENIES FEVER/CHILLS. DENIES N/V/D. PER PATIENT HIS PICC LINE WAS LEAKING WHEN HE WAS RECEIVING ABX YESTERDAY. NO REDNESS/SWELLING NOTED AROUND PICC LINE. FLUSHED LINE AND NO SIGNS OF LEAKAGE NOTED AT THIS TIME. PT DENIES ANY PAIN. PMH: HTN, DM ALLERGIES: CODEINE
[2022-03-09 14:33] VITALS: BP 134/72
--- NOTE | 2022-03-09 14:33 | NUR ---
Patient discharged with v/s stable. Written and verbal after care instructions given and explained. Patient alert, oriented and verbalized understanding of instructions. Ambulatory with steady gait. All questions addressed prior to discharge. ID band removed. Patient advised to follow up with PMD. Opportunity to ask questions provided and answered.
== END 2022-03-09 14:33 | disposition home or self-care (01) ==
LOC: MED 11:57
DX: L89.613 Pressure ulcer of right heel, stage 3 (principal); E11.9 Type 2 diabetes mellitus without complications; I10 Essential (primary) hypertension; Z79.2 Long term (current) use of antibiotics; Z79.899 Other long term (current) drug therapy; Z88.5 Allergy status to narcotic agent
CPT/HCPCS: 99281

== ENCOUNTER 2022-11-16 09:17 | Inpatient (IN) | payer OTHER ==
[~2022-11-16] VITALS: Ht 188 cm; Wt 104.3 kg
[2022-11-16 09:50] VITALS: BP 121/74
[2022-11-16] MEDS ORDERED: methylPREDNISolone SS 125 MG/2 ML VIAL IVP ONE (10:10)
[2022-11-16] MEDS ORDERED: FAMOTIDINE 20 MG/2 ML VIAL IVP ONE (10:10)
[2022-11-16] MEDS ORDERED: RACEPINEPHRINE 2.25% 13.5 MG/0.5 ML NEBU INH ONE (10:10)
[2022-11-16] MEDS ORDERED: diphenhydrAMINE 50 MG/ML VIAL IVP ONE (10:10)
[2022-11-16] MEDS ORDERED: GLIP5TER PO (12:24)
[2022-11-16] MEDS ORDERED: ACETAMINOPHEN 325 MG TAB PO PRN (14:45)
[2022-11-16] MEDS ORDERED: MAG SULF 2000 MG/WATER PREMIX 50 ML IV PRN (14:45)
[2022-11-16] MEDS ORDERED: ONDANSETRON 4 MG/2 ML VIAL IVP PRN (14:45)
[2022-11-16] MEDS ORDERED: NACL 0.9% 1,000 ML IV SCH (14:45)
[2022-11-16] MEDS ORDERED: DEXTROSE 50% 50 ML SYR IVP PRN (14:45)
[2022-11-16] MEDS ORDERED: POTASSIUM CHLORIDE 10 MEQ TABER PO PRN (14:45)
[2022-11-16] MEDS ORDERED: INSULIN LISPRO SLIDING SCALE 100 UNITS/ML VIAL SUBQ PRN (14:45)
[2022-11-16 16:00] LABS: BASOPHILS # (AUTO) 0.1 K/uL (0.00-0.22); BASOPHILS % (AUTO) 0.4 % (0.0-2.0); EOSINOPHILS % (AUTO) 0.1 % (0.0-4.0); HEMATOCRIT 33.7 % (36-52); HEMOGLOBIN 11.3 g/dL (12.0-18.0); LYMPHOCYTES # (AUTO) 0.5 K/uL (2.0-11.5); LYMPHOCYTES % (AUTO) 3.7 % (20.5-51.1); MEAN CORPUSCULAR HEMOGLOBIN 29 pg (27-31); MEAN CORPUSCULAR HGB CONC 33 g/dL (33-37); MONOCYTES # (AUTO) 0.1 K/uL (0.8-1.0); MONOCYTES % (AUTO) 0.9 % (1.7-9.3); NEUTROPHILS # (AUTO) 12.6 K/uL (1.8-7.7); NEUTROPHILS % (AUTO) 94.9 % (42.2-75.2); PLATELET COUNT (AUTO) 357 K/uL (140-450); RED BLOOD CELL COUNT(AUTO) 3.92 MIL/uL (4.20-6.10); RED CELL DISTRIBUTION WIDTH 15.3 % (11.6-13.7); WHITE BLOOD COUNT (AUTO) 13.2 K/uL (4.8-10.8)
[2022-11-16] MEDS ORDERED: BLOOD GLUCOSE MONITORING 1 DEV DEV FS SCH (16:30)
[2022-11-16 16:36] LABS: PROTHROMBIN TIME 10.2 secs (10.8-13.4)
[2022-11-16 16:47] LABS: ANION GAP 14.6 (8-16); CARBON DIOXIDE 24.1 mmol/L (21-32); CREATININE 1.7 mg/dL (0.6-1.3); POTASSIUM 3.7 mmol/L (3.5-5.1)
[2022-11-16 17:21] LABS: AMYLASE 47 U/L (25-115); CHOL/HDL RATIO 4.1 (1-4.5); FREE T4 (FREE THYROXINE) 1.19 ng/dL (0.76-1.46); HDL CHOLESTEROL 29 mg/dL (40-60); LDL (CALC) 72 mg/dL (60-100); LIPASE 203 U/L (73-393); MAGNESIUM 1.6 mg/dL (1.8-2.4); PHOSPHORUS 2.6 mg/dL (2.5-4.9); THYROID STIMULATING HORMONE 0.16 uIU/mL (0.34-3.74); TRIGLYCERIDES 92 mg/dL (30-150)
[2022-11-16 18:24] VITALS: BP 123/65
[2022-11-16 18:40] LABS: APPEARANCE,URINE CLEAR (CLEAR); BILIRUBIN,URINE NEGATIVE (NEGATIVE); BLOOD, URINE TRACE-L (NEGATIVE); COLOR,URINE YELLOW (YELLOW); LEUKOCYTE ESTERASE ,URINE NEGATIVE (NEGATIVE); NITRITE, URINE NEGATIVE (NEGATIVE); PH,URINE 5.5 (5.0-9.0); UGLUCOSE NEGATIVE (NEGATIVE)
[2022-11-16 19:05] LABS: BARBITURATE, URINE NEGATIVE ng/ml (NEG <=200); BENZODIAZEPINE, URINE NEGATIVE ng/mL (NEG <=200); CANNABINOID, URINE NEGATIVE ng/mL (NEG <=50); COCAINE, URINE NEGATIVE ng/mL (NEG <=300); OPIATE, URINE NEGATIVE ng/mL (NEG <=2000); PHENCYCLIDINE SCREEN,URINE NEGATIVE ng/mL (NEG <=25)
[2022-11-16 19:08] LABS: RBC,URINE 0-5 /HPF (0-5); WBC,URINE NONE SEEN /HPF (0-5)
[2022-11-16] MEDS ORDERED: DOCUSATE SODIUM 100 MG GELCAP PO SCH (21:00)
[2022-11-16] MEDS ORDERED: methylPREDNISolone SS 125 MG/2 ML VIAL IVP SCH (21:00)
[2022-11-17] MEDS ORDERED: ATORVASTATIN 20 MG TAB PO SCH (09:00)
[2022-11-17] MEDS ORDERED: PANTOPRAZOLE 40 MG INJ VIAL IVP SCH (09:00)
[2022-11-17] MEDS ORDERED: glipiZIDE ER 5 MG TABER PO SCH (09:00)
[2022-11-17] MEDS ORDERED: FLUoxetine 20 MG CAP PO SCH (09:00)
[2022-11-17] MEDS ORDERED: hydroCHLOROthiazide 25 MG TAB PO SCH (09:00)
[2022-11-17] MEDS ORDERED: methylPREDNISolone SS 40 MG/ML VIAL IVP SCH (21:00)
== END 2022-11-16 20:47 | disposition left against medical advice (07) | DRG 915 ==
LOC: MED 09:17 → MTU 12:32
DX: T78.3XXA Angioneurotic edema, initial encounter (principal); N17.0 Acute kidney failure with tubular necrosis; E78.5 Hyperlipidemia, unspecified; E66.9 Obesity, unspecified; E11.9 Type 2 diabetes mellitus without complications; F32.9 Major depressive disorder, single episode, unspecified; T46.4X5A Adverse effect of angiotensin-converting-enzyme inhibitors, initial encounter; Z20.822 Contact with and (suspected) exposure to COVID-19; F32.A Depression, unspecified; I10 Essential (primary) hypertension; Z88.5 Allergy status to narcotic agent; Z79.899 Other long term (current) drug therapy; Y92.89 Other specified places as the place of occurrence of the external cause; Z68.29 Body mass index [BMI] 29.0-29.9, adult
CPT/HCPCS: 36415; 71045; 80048; 80305; 81001; 82140; 82150; 83036; 83605; 83690; 83735; 83880; 84100; 84439; 84443; 84484; 85025; 85610; 85730; 94640; 96374; 96375; 99285; J1200; J1815; J2930; J3490